=== PATIENT | male | born 1960 | race Caucasian/White ===

== ENCOUNTER 2023-01-13 01:43 | Inpatient (IN) | payer OTHER, MEDICAID ==
[2023-01-13] VITALS (10 sets, daily range): BP systolic 128–179; BP diastolic 79–89; PULSE 18–118; RESP 17–20; TEMP 97.7–98.2; O2SAT 95–99
[~2023-01-13] VITALS: Ht 175.3 cm; Wt 53.2 kg
[2023-01-13] MEDS ORDERED: APIX5TAB PO (03:20)
[2023-01-13] MEDS ORDERED: LISI10TA34 PO (03:20)
[2023-01-13] MEDS ORDERED: BACL10TA PO (03:20)
[2023-01-13] MEDS ORDERED: DIAZ5TAB3 PO (03:20)
[2023-01-13] MEDS ORDERED: ALBU0.084 NEB (03:22)
[2023-01-13] MEDS ORDERED: ACET300T51 PO (03:22)
[2023-01-13] MEDS ORDERED: MORPHINE SULFATE INJ 2 MG/ml SYRG IV PRN (05:45)
[2023-01-13] MEDS ORDERED: IPRATROPIUM BROM 0.5 MG/2.5ML INH SOL NEB PRN (05:45)
[2023-01-13] MEDS ORDERED: DOCUSATE SOD 100 MG CAP PO PRN (05:45)
[2023-01-13] MEDS ORDERED: hydrALAZINE HCL 20 MG/ML VL IV PRN (05:45)
[2023-01-13] MEDS ORDERED: NITROGLYCERIN 0.4 MG SL TAB SL PRN (05:45)
[2023-01-13] MEDS ORDERED: ONDANSETRON HCL 4 MG/2 ML VIAL IV PRN (05:45)
[2023-01-13] MEDS ORDERED: ALBUTEROL SULF 2.5 MG/0.5ML(0.5%) NEB SOLN NEB PRN (05:45)
[2023-01-13] MEDS ORDERED: ACETAMINOPHEN 325 MG TAB PO PRN (05:45)
[2023-01-13] MEDS ORDERED: ASPirin 81 mg TAB PO ONE (06:15)
[2023-01-13] MEDS: SODIUM CHLORIDE 0.9% 1,000 ML IV SCH ×2 (07:39→22:25)
[2023-01-13 08:12] LABS: Basophils # (auto) 0 10 ^3/uL (0-0.2); Basophils % (auto) 0.5 % (0.0-2.0); Eosinophils # (auto) 0.2 10 ^3/uL (0-0.8); Eosinophils % (auto) 2.1 % (0.0-7.0); Hematocrit 43.6 % (41.0-53.0); Hemoglobin 14.4 g/dL (13.5-17.5); Lymphocytes % (auto) 10.6 % (10.0-50.0); Mean Corpuscular Hemoglobin 31.9 pg (28.0-32.0); Mean Corpuscular Volume 96.8 fL (80.0-100.0); Monocytes # (auto) 0.5 10 ^3/uL (0-1.3); Monocytes % (auto) 5.4 % (0.0-12.0); Neutrophils % (auto) 81.4 % (37.0-80.0); Red Cell Distribution Width 14.3 % (11.8-14.3); White Blood Cell 9.8 10^3/uL (4.4-10.8)
[2023-01-13 08:33] LABS: Alanine Aminotransferase 22 U/L (7-40); Albumin 4.3 g/dL (3.2-4.8); Alkaline Phosphatase 99 U/L (46-116); Anion Gap 8 (5-15); Aspartate Aminotransferase 39 U/L (13-40); BUN/Creatinine Ratio 20.5 (10.0-20.0); Blood Urea Nitrogen 17 mg/dL (9-23); Calcium 9.5 mg/dL (8.5-10.1); Carbon Dioxide 21 mmol/L (20-30); Chloride 108 mmol/L (98-107); Glucose 113 mg/dL (74-106); Potassium 4.4 mmol/L (3.5-5.1); Sodium 137 mmol/L (136-145)
[2023-01-13 08:34] LABS: Bilirubin, Total 0.5 mg/dL (0.2-1.0); Total Protein 7.5 g/dL (5.7-8.2)
[2023-01-13] MEDS: HYDROcodone-ACET 5/325MG TAB PO PRN ×3 (09:30→20:52)
[2023-01-13] MEDS ORDERED: APIXABAN 5 MG TAB PO SCH (10:00)
[2023-01-13] MEDS ORDERED: amLODIPine BESYLATE 5 MG TAB PO SCH (10:00)
[2023-01-13] MEDS ORDERED: LABETALOL HCL 5 MG/ML 4ML SYRINGE IV PRN (11:30)
[2023-01-13] MEDS ORDERED: PANTOPRAZOLE 40 MG/10 ML VIAL INJ IV ONE (11:30)
[2023-01-13] MEDS ORDERED: LISINOPRIL 10 MG TAB PO ONE (11:50)
[2023-01-14] VITALS (15 sets, daily range): BP systolic 133–160; BP diastolic 75–93; PULSE 53–103; RESP 17–20; TEMP 97.6–98.9; O2SAT 96–100
[2023-01-14] MEDS: HYDROcodone-ACET 5/325MG TAB PO PRN ×5 (01:21→22:46)
[2023-01-14] MEDS: diazePAM 5 MG TAB PO PRN ×3 (02:08→22:49)
[2023-01-14 06:27] LABS: Basophils # (auto) 0.1 10 ^3/uL (0-0.2); Basophils % (auto) 0.6 % (0.0-2.0); Eosinophils # (auto) 0.3 10 ^3/uL (0-0.8); Eosinophils % (auto) 3.5 % (0.0-7.0); Hematocrit 39.9 % (41.0-53.0); Hemoglobin 13.6 g/dL (13.5-17.5); Lymphocytes # (auto) 1.2 10 ^3/uL (0.4-5.4); Mean Corpuscular Hemoglobin 32.4 pg (28.0-32.0); Mean Corpuscular Volume 95.3 fL (80.0-100.0); Monocytes # (auto) 0.7 10 ^3/uL (0-1.3); Monocytes % (auto) 8.5 % (0.0-12.0); Neutrophils # (auto) 6.4 10 ^3/uL (1.6-8.6); Neutrophils % (auto) 73.4 % (37.0-80.0); Red Blood Cells 4.19 10^6/uL (4.5-5.90); Red Cell Distribution Width 14.1 % (11.8-14.3); White Blood Cell 8.7 10^3/uL (4.4-10.8)
[2023-01-14 06:38] LABS: INR 1.14 (0.9-1.15); Partial Thromboplastin Time 37.8 SEC (24.5-34.5); Prothrombin Time 11.9 sec (9.3-11.8)
[2023-01-14 06:44] LABS: Alanine Aminotransferase 19 U/L (7-40); Albumin 3.9 g/dL (3.2-4.8); Alkaline Phosphatase 86 U/L (46-116); Anion Gap 8 (5-15); Aspartate Aminotransferase 33 U/L (13-40); BUN/Creatinine Ratio 17.1 (10.0-20.0); Blood Urea Nitrogen 13 mg/dL (9-23); Carbon Dioxide 22 mmol/L (20-30); Chloride 108 mmol/L (98-107); Glucose 89 mg/dL (74-106); Potassium 4.3 mmol/L (3.5-5.1); Sodium 138 mmol/L (136-145)
[2023-01-14 06:45] LABS: Bilirubin, Total 0.5 mg/dL (0.2-1.0); Total Protein 6.7 g/dL (5.7-8.2)
[2023-01-14] MEDS: PANTOPRAZOLE 40 MG/10 ML VIAL INJ IV SCH (08:58)
[2023-01-14] MEDS: LISINOPRIL 10 MG TAB PO SCH (09:01)
[2023-01-14] MEDS ORDERED: ACET300T51 PO (15:34)
[2023-01-14] MEDS ORDERED: BACL10TA PO (15:34)
[2023-01-14] MEDS ORDERED: APIX5TAB4 PO (15:34)
[2023-01-14] MEDS ORDERED: DIAZ5TAB3 PO (15:34)
[2023-01-14] MEDS ORDERED: LISI10TA34 PO (15:34)
[2023-01-14 16:45] LABS: Urine Bacteria NONE SEEN /hpf (None Seen); Urine Blood Negative /uL (Negative); Urine Clarity Clear (Clear); Urine Color Yellow (Yellow); Urine Hyaline Cast FEW /lpf (0 - 2); Urine Protein, UAD TRACE (Negative); Urine Specific Gravity 1.019 (1.001-1.035); Urine Urobilinogen Normal (Negative); Urine WBC <1 /hpf (0 - 3)
[2023-01-15 04:52] VITALS: BP 118/67; PULSE 49; RESP 20; TEMP 98.2; O2SAT 96
[2023-01-15 06:02] VITALS: O2SAT 97
[2023-01-15 06:19] LABS: Basophils # (auto) 0.1 10 ^3/uL (0-0.2); Basophils % (auto) 1.1 % (0.0-2.0); Eosinophils # (auto) 0.4 10 ^3/uL (0-0.8); Eosinophils % (auto) 5.3 % (0.0-7.0); Hematocrit 41.2 % (41.0-53.0); Hemoglobin 13.7 g/dL (13.5-17.5); Lymphocytes # (auto) 1.8 10 ^3/uL (0.4-5.4); Mean Corpuscular Hemoglobin 31.5 pg (28.0-32.0); Mean Corpuscular Hgb Conc. 33.3 g/dL (32.0-36.0); Mean Corpuscular Volume 94.6 fL (80.0-100.0); Monocytes # (auto) 0.8 10 ^3/uL (0-1.3); Monocytes % (auto) 9.5 % (0.0-12.0); Neutrophils # (auto) 4.9 10 ^3/uL (1.6-8.6); Neutrophils % (auto) 61.1 % (37.0-80.0); Red Blood Cells 4.35 10^6/uL (4.5-5.90); Red Cell Distribution Width 13.8 % (11.8-14.3)
[2023-01-15] MEDS: HYDROcodone-ACET 5/325MG TAB PO PRN ×2 (06:58→11:38)
[2023-01-15 08:30] VITALS: PULSE 74; PULSE 94; RESP 20; O2SAT 95
[2023-01-15] MEDS: PANTOPRAZOLE 40 MG/10 ML VIAL INJ IV SCH (08:59)
[2023-01-15] MEDS: LISINOPRIL 10 MG TAB PO SCH (09:00)
[2023-01-15 09:06] VITALS: BP 124/66; PULSE 66; RESP 16; TEMP 97.6; O2SAT 95
[2023-01-15] MEDS ORDERED: PANT40TA2 PO (10:26)
[2023-01-15] MEDS: diazePAM 5 MG TAB PO PRN (12:14)
== END 2023-01-15 15:55 | disposition home or self-care (01) | DRG 392 ==
LOC: UNDOADMIN 02:27 → TELE-WESTW 02:27
PROVIDERS: ADMIT Nurse Practitioner Family; ATTEND Internal Medicine
DX: K29.70 Gastritis, unspecified, without bleeding (principal); I24.9 Acute ischemic heart disease, unspecified; I16.0 Hypertensive urgency; I10 Essential (primary) hypertension; I48.91 Unspecified atrial fibrillation; I25.10 Atherosclerotic heart disease of native coronary artery without angina pectoris; J44.9 Chronic obstructive pulmonary disease, unspecified; Z79.899 Other long term (current) drug therapy; Z82.49 Family history of ischemic heart disease and other diseases of the circulatory system; Z86.73 Personal history of transient ischemic attack (TIA), and cerebral infarction without residual deficits; Z88.0 Allergy status to penicillin; Z95.2 Presence of prosthetic heart valve; I25.2 Old myocardial infarction; Z72.0 Tobacco use; Z71.6 Tobacco abuse counseling
CPT/HCPCS: 36415; 71045; 71250; 74176; 80053; 81001; 82270; 83880; 84484; 85025; 85610; 85730; 93005; 93306; 94640; C9113; G0378; J3490

== ENCOUNTER → 2023-02-06 | Outpatient (CLI) | payer OTHER, MEDICAID ==
[~2023-02-06] MED LIST: ACET300T51 PO; ALBU0.084 NEB; APIX5TAB4 PO; BACL10TA PO; DIAZ5TAB3 PO; LISI10TA34 PO; PANT40TA2 PO
[2023-02-06 14:00] LABS: Base Excess -8.2 mmol/L (-2.0-2.0)
== END | disposition home or self-care (01) ==
LOC: RT 13:23
PROVIDERS: ATTEND Internal Medicine
DX: J96.11 Chronic respiratory failure with hypoxia (principal); J44.9 Chronic obstructive pulmonary disease, unspecified
CPT/HCPCS: 36600; 82805

== ENCOUNTER → 2023-02-06 | Outpatient (CLI) | payer OTHER ==
[2023-02-06 14:35] LABS: Basophils # (auto) 0 10 ^3/uL (0-0.2); Basophils % (auto) 0.4 % (0.0-2.0); Eosinophils # (auto) 0.1 10 ^3/uL (0-0.8); Eosinophils % (auto) 1.3 % (0.0-7.0); Hemoglobin 14.8 g/dL (13.5-17.5); Lymphocytes # (auto) 1.3 10 ^3/uL (0.4-5.4); Lymphocytes % (auto) 13.1 % (10.0-50.0); Mean Corpuscular Hemoglobin 32.1 pg (28.0-32.0); Mean Corpuscular Hgb Conc. 33.6 g/dL (32.0-36.0); Mean Corpuscular Volume 95.7 fL (80.0-100.0); Monocytes # (auto) 0.6 10 ^3/uL (0-1.3); Monocytes % (auto) 5.6 % (0.0-12.0); Neutrophils % (auto) 79.6 % (37.0-80.0); Red Cell Distribution Width 14.3 % (11.8-14.3)
[2023-02-06 14:53] LABS: Urine Bacteria NONE SEEN /hpf (None Seen); Urine Blood Negative /uL (Negative); Urine Clarity Clear (Clear); Urine Color Yellow (Yellow); Urine Hyaline Cast FEW /lpf (0 - 2); Urine Mucus FEW (None Seen); Urine Protein, UAD 2+ (Negative); Urine Specific Gravity 1.038 (1.001-1.035); Urine WBC <1 /hpf (0 - 3); Urine pH 5.5 (5.0-8.0)
[2023-02-06 15:20] LABS: Alanine Aminotransferase 14 U/L (7-40); Alkaline Phosphatase 111 U/L (46-116); Anion Gap 6 (5-15); BUN/Creatinine Ratio 20.2 (10.0-20.0); Blood Urea Nitrogen 21 mg/dL (9-23); Calcium 10.2 mg/dL (8.5-10.1); Carbon Dioxide 22 mmol/L (20-30); Chloride 110 mmol/L (98-107); Glucose 99 mg/dL (74-106); LDL Cholesterol 157 mg/dL (< 100); Potassium 5.5 mmol/L (3.5-5.1); Sodium 138 mmol/L (136-145); Triglycerides 125 mg/dL (< 150)
[2023-02-06 15:21] LABS: Aspartate Aminotransferase 23 U/L (13-40); Bilirubin, Total 0.7 mg/dL (0.2-1.0); Cholesterol 209 mg/dL (< 200); HDL Cholesterol 39 mg/dL (40-59); Total Protein 8.1 g/dL (5.7-8.2)
[2023-02-06 15:24] LABS: Folate (Folic Acid) > 24.00 ng/mL (>5.38)
[2023-02-06 15:46] LABS: Uric Acid 6.1 mg/dL (3.7-9.2)
[2023-02-06 15:47] LABS: Magnesium 2.1 mg/dL (1.6-2.6)
== END | disposition home or self-care (01) ==
LOC: LAB 14:19
PROVIDERS: ATTEND Internal Medicine
DX: E61.2 Magnesium deficiency (principal); E79.0 Hyperuricemia without signs of inflammatory arthritis and tophaceous disease; R94.6 Abnormal results of thyroid function studies; R82.998 Other abnormal findings in urine; E55.9 Vitamin D deficiency, unspecified; R82.79 Other abnormal findings on microbiological examination of urine; D51.9 Vitamin B12 deficiency anemia, unspecified; R78.89 Finding of other specified substances, not normally found in blood; R68.89 Other general symptoms and signs; E78.49 Other hyperlipidemia; R73.09 Other abnormal glucose
CPT/HCPCS: 36415; 80053; 80061; 81001; 82306; 82607; 82746; 83036; 83735; 84443; 84550; 85025; 87086

== ENCOUNTER 2024-05-02 16:15 | Emergency (ER) | payer OTHER ==
[~2024-05-02] VITALS: Ht 175.3 cm; Wt 56.8 kg
--- NOTE | 2024-05-02 16:54 | ED.PDOC ---
Musculoskeletal HPI Comments 64-year-old male brought in by EMS presents with a chief complaint of calf tenderness and back pain. Patient states that his back pain is chronic and has been present for x 14 years. Patient reports that his calf tenderness is new and has been present for the past x 2 days. Patient denies any new injuries or trauma prior to onset of symptoms. Patient is able to stand and walk on his leg. Patient has left calf tenderness and diffuse lumbar tenderness. Slight decrease in ROM, but is neuromuscular intact. No bowel or bladder complaints. no weakness. back pain is worsened by turning and bending Chief Complaint: Lower Extremity Time Seen by MD: 16:45 Reviewed Notes: Medications, Allergies Allergies: Coded Allergies: Penicillins (Verified Allergy, Unknown, 01/13/23) Home Meds Active Scripts Pantoprazole Sodium Sesquihydr (Protonix) 40 Mg Tab, 40 MG PO DAILY for 30 Days, #30 TAB Prov:GUERRERO ALEXANDER MD 01/15/23 Reported Medications Lisinopril (Lisinopril) 10 Mg Tab, 10 MG PO DAILY for 30 Days, MG 01/14/23 Diazepam (Diazepam) 5 Mg Tab, 5 MG PO TID, TAB 01/14/23 Baclofen (Baclofen) 10 Mg Tab, 10 MG PO Q8HR, MG 01/14/23 Apixaban Base (Eliquis Starter Pack) 5 Mg Tab, 5 MG PO DAILY, TAB 01/14/23 Acetaminophen W/ Codeine (Acetaminophen/Codeine) 1 Tab Tab, 1 TAB PO Q6HR, #30 TAB 01/14/23 Albuterol Sulfate (Al[facility]erol Sulfate) [facility]083 [facility] Information Source: Patient Mode of Arrival: EMS Location: Left Extremity Location: Leg Timing: Days Prehospital treatment: None Severity: Moderate Able to Move Extremity: Yes Bear Weight: Fully Pain: Moderate Hand Dominance: Right Mechanism: Spontaneous Circumstances: Spontaneous Onset of Symptoms: Spontaneous Symptoms: Pain DVT Risk Factors: NONE Last Tetanus: Unknown Past Medical History PAST MEDICAL HISTORY: COPD, CVA, HTN Past Medical History (Other): Abdominal Aortic Aneurysm- REPAIRED Surgical History (Other): AORTIC ANEURISM GRAFT Family History Family History: Reviewed,noncontributory to illness Social History Smoker: Cigarettes Alcohol: Denies ETOH Use Drugs: Denies Drug Use Lives In: Home Constitutional: denies: chills, diaphoresis, fatigue, fever, malaise, sweats, weakness, others EENTM: denies: blurred vision, double vision, ear bleeding, ear discharge, ear drainage, ear pain, ear ringing, eye pain, eye redness, hearing loss, mouth pain, mouth swelling, nasal discharge, nose bleeding, nose congestion, nose pain, photophobia, tearing, throat pain, throat swelling, voice changes, others Respiratory: denies: cough, hemoptysis, orthopnea, SOB at rest, shortness of breath, SOB with excertion, stridor, wheezing, others Cardiovascular: denies: chest pain, dizzy spells, diaphoresis, Dyspnea on exertion, edema, irregular heart beat, left arm pain, lightheadedness, palpitations, PND, syncope, others Gastrointestinal: denies: abdomen distended, abdominal pain, blood streaked bowels, constipated, diarrhea, dysphagia, difficulty swallowing, hematemesis, melena, nausea, poor appetite, poor fluid intake, rectal bleeding, rectal pain, vomiting, others Genitourinary: denies: burning, dysuria, flank pain, frequency, hematuria, incontinence, penile discharge, penile sore, pain, testicle pain, testicle swelling, urgency, others Neurological: denies: dizziness, fainting, headache, left sided numbness, left sided weakness, numbness, paresthesia, pre-existing deficit, right sided numbness, right sided weakness, seizure, speech problems, tingling, tremors, weakness, others Musculoskeletal: reports: back pain, muscle pain; denies: gout, joint pain, joint swelling, muscle stiffness, neck pain, others Integumetry: denies: bruises, change in color, change in hair/nails, dryness, laceration, lesions, lumps, rash, wounds, others Allergic/Immunocompromised: denies: Difficulty Healing, Frequent Infections, Hives, Itching, others Hematologic/Lymphatic: denies: anemia, blood clots, easy bleeding, easy bruising, swollen glands, others Endocrine: denies: excessive hunger, excessive sweating, excessive thirst, excessive urination, flushing, intolerance to cold, intolerance to heat, unexplained weight gain, unexplained weight loss, others Psychiatric: denies: anxiety, bipolar disorder, depression, hopeless, panic disorder, schizophrenia, sleepless, suicidal, others All Other Systems: Reviewed and Negative Physical Exam General Appearance: No Apparent Distress, Normal HEENT: Normal ENT Inspection, Pharynx Normal, TMs Normal Neck: Full Range of Motion, Non-Tender, Normal, Normal Inspection Respiratory: Chest Non-Tender, Lungs Clear, No Accessory Muscle Use, No Respir atory Distress, Normal Breath Sounds Cardiovascular: No Edema, No JVD, No Murmur, No Gallop, Normal Peripheral Pulses, Regular Rate/Rhythm Breast Exam: Deferred Gastrointestinal: No Organomegaly, Non Tender, No Pulsatile Mass, Normal Bowel Sounds, Soft Genitalia: Deferred Pelvic: Deferred Rectal: Deferred Extremities: Calf tenderness (LEFT CALF), Decreased range of motion, Normal capillary refill, Normal inspection, Non-tender, No pedal edema Musculoskeletal : Extremity Location: Back (MILD DIFFUSED LUMBAR TTP) Apperance: Normal Neurologic: Alert, 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 Was a procedure done?: No Differential Diagnosis EXT Differential Diagnosis: Sprain, DJD, Strain, Neurovascular injury, Arthritis, Other (DVT, SCIATICA) X-Ray, Labs, Meds, VS Vital Signs Date Time Temp Pulse Resp B/P (MAP) Pulse Ox O2 Delivery O2 Flow Rate FiO2 05/02/24 16:29 98.3 102 18 149/92 (111) 96 Time of 1ST Reevaluation: 17:15 Reevaluation 1ST: Unchanged Patient Education/Counseling: Diagnosis, Treatment, Prognosis, Need For Follow Up Family Education/Counseling: No Family Present Departure 1 Departure Time of Disposition: 17:43 Impression: Primary Impression: Sciatica Qualified Codes: M54.32 - Sciatica, left side Disposition: 01 HOME / SELF CARE / HOMELESS Condition: Good e-Prescriptions Lidocaine (LIDODERM 5% TOPICAL PATCH) 1 Patch Ph 1 PATCH TOP DAILY, #30 PATCH 1 Refill Prov: AMPARO PFEIFFER MD 05/02/24 Hydrocodone-Acetaminophen (Hydrocodone Bitartrate/AC 10-325 mg) 1 Tab Tab 1 TAB PO Q8HP PRN for 3 Days, #9 TAB Prov: AMPARO PFEIFFER MD 05/02/24 Cyclobenzaprine Hcl (Cyclobenzaprine Hcl) 10 Mg Tab 10 MG PO Q8HP PRN for 3 Days, #9 TAB Prov: AMPARO PFEIFFER MD 05/02/24 Discharged With: Self Critical Care Note Critical Care Time?: No Stability Stability form required: No I personally scribed for AMPARO PFEIFFER MD ([email or web address]) on 05/02/24 at 16:54. Electronically submitted by Linwood Thomas ([email or web address]). AMPARO PFEIFFER MD May 02, 2024 16:54
[2024-05-02] MEDS ORDERED: HYDROcodone-ACET 5/325MG TAB PO ONE (17:00)
--- NOTE | 2024-05-02 17:09 | DVH ---
INDICATION: pain TECHNIQUE: 4 views of the lumbar spine were obtained. COMPARISON: CT dated 01/13/2023 FINDINGS: No acute subluxation. No acute fracture. Mild to moderate compression fracture of the superior endplate of the L2 vertebral body, chronic. Vascular stent in-situ. IMPRESSION: No acute fracture or subluxation.
--- NOTE | 2024-05-02 17:27 | DVH ---
LEFT lower extremity venous duplex Clinical History: r/o DVT Comparison: None Technique: Duplex Doppler evaluation of the deep venous systems of both lower extremities from the common femora l veins to the popliteal veins including color Doppler and spectral/pulsed waveform analysis was perf ormed. Findings: LEFT SIDE: The common femoral vein demonstrates appropriate compressibility and waveform variability . There is compressibility/patency of the great saphenous vein at the proximal thigh . The femoral vein demonstrates appropriate compressibility and waveform variability . The deep femoral vein demonstrates appropriate compressibility and waveform variability . The popliteal vein demonstrates appropriate compressibility and waveform variability . There is normal compressibility at the tibioperoneal trunk. Impression: 1. No left femoropopliteal venous thrombosis. 2. SUBOPTIMAL STUDY SINCE PATIENT WAS MOVING CONTINUOUSLY. HS:Y
[2024-05-02] MEDS ORDERED: LIDO5DIS21 TOP (17:44)
[2024-05-02] MEDS ORDERED: CYCL-839 PO (17:44)
[2024-05-02] MEDS ORDERED: HYDR-4798 PO (17:44)
[2024-05-02 23:35] VITALS: BP 107/77; PULSE 105; TEMP 98.9
[2024-05-02 23:36] VITALS: RESP 20; O2SAT 96
[2024-05-02] MEDS: fentaNYL CITRATE 100 MCG/2 ML VL IM ONE (23:39)
== END 2024-05-02 23:48 | disposition home or self-care (01) ==
LOC: ER 16:15 → EDBD 16:15 → ER 21:30
DX: M54.32 Sciatica, left side (principal); J44.9 Chronic obstructive pulmonary disease, unspecified; I10 Essential (primary) hypertension; F17.210 Nicotine dependence, cigarettes, uncomplicated; Z79.899 Other long term (current) drug therapy; Z88.0 Allergy status to penicillin; Z98.890 Other specified postprocedural states
CPT/HCPCS: 72100; 93971

== ENCOUNTER 2024-07-08 16:06 | Emergency (ER) | payer OTHER ==
[~2024-07-08] VITALS: Ht 175.3 cm; Wt 44.0 kg
[~2024-07-08 16:06] MED LIST changes: +CYCL-839 PO; +HYDR-4798 PO; +LIDO5DIS21 TOP
[2024-07-08 16:36] VITALS: BP 134/90; PULSE 79; RESP 16; TEMP 98.4; O2SAT 97
--- NOTE | 2024-07-08 16:39 | ED.PDOC ---
Musculoskeletal HPI Comments A 64 YEAR OLD MALE BROUGHT IN BY DAUGHTER PRESENTS TO THE ED WITH CHIEF COMPLAINT OF MED REFILL AND RIGHT TOE NUMBNESS. DAUGHTER REPORTS THAT THE PATIENT IS CURRENTLY ON COUMADIN DUE TO A PREVIOUS CVA AFTER A LEFT AKA WAS PERFORMED. DAUGHTER RELAYS THAT THE PATIENT WAS DISCHARGED WITH NO REFILL ON COUMADIN, NEEDING TO TAKE 2MG A DAY AND 4MG ON THE WEEKENDS. DAUGHTER STATES THAT THE PATIENT HAS BEEN GOING 10 DAYS WITHOUT COUMADIN. DAUGHTER NOTES THAT THE PATIENT JUST STARTED TO COMPLAIN OF NUMBNESS TO HIS RIGHT GREAT TOE A 2 DAYS AGO AND HAS BEEN NOTED TO HAVE CHRONIC BACK PAIN. PATIENT DENIES SADDLE ANESTHESIA, URINARY INCONTINENCE, BOWEL INCONTINENCE, ANY CHEST PAIN, SOB, WEAKNESS, DIZZINESS, OR HEADACHE. NO OTHER SYMPTOMS REPORTED AT THIS TIME OF CARE. Chief Complaint: Lower Extremity Time Seen by MD: 16:35 Reviewed Notes: Nurses Notes, Medications, Allergies Allergies: Coded Allergies: Penicillins (Verified Allergy, Unknown, 01/13/23) Home Meds Active Scripts Gabapentin (Gabapentin) 300 Mg Cap, 1 CAP PO BID, #30 CAP Prov:GRETEL GORE 07/08/24 Warfarin Sodium (Warfarin Sodium) 4 Mg Tab, 1 TAB PO QWEEKLY, #10 TAB Prov:GRETEL GORE 07/08/24 Warfarin Sodium (Warfarin Sodium) 2 Mg Tab, 1 TAB PO DAILY, #30 TAB Prov:GRETEL GORE 07/08/24 Lidocaine (LIDODERM 5% TOPICAL PATCH) 1 Patch Ph, 1 PATCH TOP DAILY, #30 PATCH 1 Refill Prov:AMPARO PFEIFFER MD 05/02/24 Hydrocodone-Acetaminophen (Hydrocodone Bitartrate/AC 10-325 mg) 1 Tab Tab, 1 TAB PO Q8HP PRN for 3 Days, #9 TAB Prov:AMPARO PFEIFFER MD 05/02/24 Cyclobenzaprine Hcl (Cyclobenzaprine Hcl) 10 Mg Tab, 10 MG PO Q8HP PRN for 3 Days, #9 TAB Prov:AMPARO PFEIFFER MD 05/02/24 Pantoprazole Sodium Sesquihydr (Protonix) 40 Mg Tab, 40 MG PO DAILY for 30 Days, #30 TAB Prov:GUERRERO ALEXANDER MD 01/15/23 Reported Medications Lisinopril (Lisinopril) 10 Mg Tab, 10 MG PO DAILY for 30 Days, MG 10/3/23 Diazepam (Diazepam) 5 Mg Tab, 5 MG PO TID, TAB 01/14/23 Baclofen (Baclofen) 10 Mg Tab, 10 MG PO Q8HR, MG 01/14/23 Apixaban Base (Eliquis Starter Pack) 5 Mg Tab, 5 MG PO DAILY, TAB 01/14/23 Acetaminophen W/ Codeine (Acetaminophen/Codeine) 1 Tab Tab, 1 TAB PO Q6HR, #30 TAB 01/14/23 Albuterol Sulfate (Albuterol Sulfate) 0.083 % Neb, NEB 01/13/23 Information Source: Patient, Relative (DAUGHTER) Mode of Arrival: Wheelchair Location: Right Extremity Location: Great Toe Timing: Days Prehospital treatment: None Severity: Moderate Able to Move Extremity: Yes Bear Weight: Limited Pain: None Mechanism: Spontaneous Circumstances: Spontaneous Onset of Symptoms: Spontaneous DVT Risk Factors: Recent surgery Last Tetanus: Unknown Associated signs and symptoms: None Past Medical History PAST MEDICAL HISTORY: COPD, CVA, HTN Past Medical History (Other): CHRONIC LOW BACL PAIN, COMPRESSION FX Surgical History: AKA (LEFT AKA) Family History Family History: Reviewed,noncontributory to illness Social History Smoker: Cigarettes Alcohol: Denies ETOH Use Drugs: Denies Drug Use Lives In: Home Constitutional: denies: chills, diaphoresis, fatigue, fever, malaise, sweats, weakness, others EENTM: denies: blurred vision, double vision, ear bleeding, ear discharge, ear drainage, ear pain, ear ringing, eye pain, eye redness, hearing loss, mouth pain, mouth swelling, nasal discharge, nose bleeding, nose congestion, nose pain, photophobia, tearing, throat pain, throat swelling, voice changes, others Respiratory: denies: cough, hemoptysis, orthopnea, SOB at rest, shortness of breath, SOB with excertion, stridor, wheezing, others Cardiovascular: denies: chest pain, dizzy spells, diaphoresis, Dyspnea on exertion, edema, irregular heart beat, left arm pain, lightheadedness, palpitations, PND, syncope, others Gastrointestinal: denies: abdomen distended, abdominal pain, blood streaked bowels, constipated, diarrhea, dysphagia, difficulty swallowing, hematemesis, melena, nausea, poor appetite, poor fluid intake, rectal bleeding, rectal pain, vomiting, others Genitourinary: denies: burning, dysuria, flank pain, frequency, hematuria, incontinence, penile discharge, penile sore, pain, testicle pain, testicle swelling, urgency, others Neurological: reports: tingling (RIGHT GREAT TOE. ); denies: dizziness, fainting, headache, left sided numbness, left sided weakness, numbness, paresthesia, pre-existing deficit, right sided numbness, right sided weakness, seizure, speech problems, tremors, weakness, others Musculoskeletal: reports: others (RIGHT GREAT TOE NUMBNESS); denies: back pain, gout, joint pain, joint swelling, muscle pain, muscle stiffness, neck pain Integumetry: denies: bruises, change in color, change in hair/nails, dryness, laceration, lesions, lumps, rash, wounds, others Allergic/Immunocompromised: denies: Difficulty Healing, Frequent Infections, Hives, Itching, others Hematologic/Lymphatic: denies: anemia, blood clots, easy bleeding, easy bruising, swollen glands, others Endocrine: denies: excessive hunger, excessive sweating, excessive thirst, excessive urination, flushing, intolerance to cold, intolerance to heat, unexplained weight gain, unexplained weight loss, others Psychiatric: denies: anxiety, bipolar disorder, depression, hopeless, panic disorder, schizophrenia, sleepless, suicidal, others All Other Systems: Reviewed and Negative Physical Exam General Appearance: No Apparent Distress, Normal HEENT: Normal ENT Inspection, PERRL/EOMI Neck: Full Range of Motion, Non-Tender, Normal, Normal Inspection Respiratory: Chest Non-Tender, Lungs Clear, No Accessory Muscle Use, No Re spiratory Distress, Normal Breath Sounds Cardiovascular: No Edema, No JVD, No Murmur, No Gallop, Normal Peripheral Pulses, Regular Rate/Rhythm Breast Exam: Deferred Gastrointestinal: No Organomegaly, Non Tender, No Pulsatile Mass, Normal Bowel Sounds, Soft Genitalia: Deferred Pelvic: Deferred Rectal: Deferred Extremities: No calf tenderness, Normal capillary refill, Normal inspection, Normal range of motion, Non-tender, No pedal edema, Other (NO REDNESS, SWELLING AND DEFORMITY ON RIGHT GREAT, NO DVT SIGNS AND INFECTION SIGNS. NORMAL GAIT. 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 Was a procedure done?: No Differential Diagnosis EXT Differential Diagnosis: Fracture, DJD, Strain, Arthritis Other Differential Diagnosis DDD, LUMBAR RADICULOPATHY X-Ray, Labs, Meds, VS Vital Signs Date Time Temp Pulse Resp B/P (MAP) Pulse Ox O2 Delivery O2 Flow Rate FiO2 07/08/24 16:36 98.4 79 16 134/90 (105) 97 98.4 07/08/24 16:36 79 16 97 Room Air 07/08/24 16:20 98.4 79 16 134/90 (105) 97 98.4 Lab Test 07/08/24 16:40 Range/Units Prothrombin Time 11.7 9.3-11.8 sec Prothrombin Time INR 1.12 0.9-1.15 CLINICAL INDICATION: LOW BACK PAIN WITH RIGHT GREAT TOE NUMBNESS AND TINGLING SEN TECHNIQUE: 2 radiographic views of the lumbar spine were obtained. Comparison: XY LUMBAR SPINE 3 VIEW on DOS: 05/02/24 FINDINGS/IMPRESSION: Mild compression fracture L2 L3 unchanged from May 02, [address] scan of 01/13/2023. The visualized joint space is well maintained. The alignment is anatomical. There is no radiopaque foreign body. HS:Y ATED BY: MELANIE MCINTOSH Jr., DO DICTATED DATE/TIME: 07/08/241709 SIGNED BY: MELANIE MCINTOSH Jr., SIGNED DATE/TIME: 07/08/241709 CC: X-Ray, Labs, Meds, VS Comment EXTERNAL MEDICAL RECORDS REVIEWED: [NONE] INDEPENDENT HISTORIANS: PATIENT'S DAUGHTER SOCIAL DETERMINANTS OF HEALTH: [NONE] LABS ORDERED: PT, PTT, INR REVIEWED AND INTERPRETED RESULTS: NORMAL IMAGING ORDERED: OLD COMPRESSION FX L2-L3 XR L-SPINE TREATMENTS ORDERED: NONE PROCEDURES PERFORMED: NONE CRITICAL CARE TIME: NONE I HAVE DISCUSSED THE PATIENT WITH THE ATTENDING PHYSICIAN DR. KAUFMAN AND HE AGREES WITH THE PATIENT'S PLAN OF CARE AND DISPOSITION. BASED ON HISTORY OF PRESENT ILLNESS, AND PHYSICAL EXAM, PATIENT WILL BE DISCHARGED HOME. DISCUSSED PLAN FOR DISCHARGE HOME WITH RX. COUMADIN AND GABAPENTIN MEDICATION WARNINGS GIVEN. SHARED DECISION MAKING: PATIENT INSTRUCTED TO FOLLOW UP WITH PRIMARY CARE PROVIDER IN 1-2 DAYS FOR RE-EVALUATION OF SYMPTOMS. PATIENT VERBALIZES UNDERSTANDING TO RETURN TO ED FOR NEW OR WORSENING SYMPTOMS OR IF FOLLOW UP WITH PCP CANNOT BE OBTAINED. PATIENT FEELS COMFORTABLE GOING HOME AT THIS TIME. ALL QUESTIONS ADDRESSED AT TIME OF DISCHARGE. Images Reviewed?: Images reviewed and evaluated by me Time of 1ST Reevaluation: 17:05 Reevaluation 1ST: Improved Patient Education/Counseling: Diagnosis, Treatment, Need For Follow Up Family Education/Counseling: Diagnosis, Treatment, Need For Follow Up Medical Screening: No EMC Exist At This Time Departure 1 Departure Time of Disposition: 17:42 Impression: Primary Impression: DDD (degenerative disc disease) Qualified Codes: M51.372 - Other intervertebral disc degeneration, lumbosacral region with discogenic back pain and lower extremity pain Additional Impressions: Lumbar radiculopathy Medication refill Disposition: 01 HOME / SELF CARE / HOMELESS Condition: Stable Additional Instructions: FOLLOW-UP WITH PCP IN 1 TO 2 DAYS. TAKE MEDICATIONS PRESCRIBED. RETURN TO ED FOR ANY NEW OR WORSENING SYMPTOMS. e-Prescriptions Gabapentin (Gabapentin) 300 Mg Cap 1 CAP PO BID, #30 CAP Prov: GRETEL GORE 07/08/24 Warfarin Sodium (Warfarin Sodium) 4 Mg Tab 1 TAB PO QWEEKLY, #10 TAB Prov: GRETEL GORE 07/08/24 Warfarin Sodium (Warfarin Sodium) 2 Mg Tab 1 TAB PO DAILY, #30 TAB Prov: GRETEL GORE 07/08/24 Discharged With: Self, Relative Critical Care Note Critical Care Time?: No Stability Stability form required: No Heart Score Heart Score: Heart Score Response (Comments) Value History N/A 0 EKG N/A 0 Age N/A 0 Risk Factors N/A 0 Troponin N/A 0 Total 0 I personally scribed for GRETEL GORE ([email or web address]) on 07/08/24 at 16:39. Electronically submitted by Cliff Ortiz ([email or web address]). I personally scribed for GRETEL GORE ([email or web address]) on 07/08/24 at 16:43. Electronically submitted by Cliff Ortiz ([email or web address]). I personally scribed for GRETEL GORE ([email or web address]) on 07/08/24 at 17:14. Electronically submitted by Cliff Ortiz ([email or web address]). I personally scribed for GRETEL GORE ([email or web address]) on 07/08/24 at 17:43. Electronically submitted by Cliff Ortiz ([email or web address]). I personally scribed for GRETEL GORE ([email or web address]) on 07/09/24 at 08:19. Electronically submitted by Kilo Boss ([email or web address]). GRETEL GORE Jul 08, 2024 16:39
--- NOTE | 2024-07-08 17:12 | DVH ---
CLINICAL INDICATION: LOW BACK PAIN WITH RIGHT GREAT TOE NUMBNESS AND TINGLING SEN TECHNIQUE: 2 radiographic views of the lumbar spine were obtained. Comparison: XY LUMBAR SPINE 3 VIEW on DOS: 05/02/24 FINDINGS/IMPRESSION: Mild compression fracture L2 L3 unchanged from May 02, [address] scan of 01/13/2023. The visualized joint space is well maintained. The alignment is anatomical. There is no radiopaque foreign body. HS:Y
[2024-07-08 17:28] LABS: INR 1.12 (0.9-1.15); Prothrombin Time 11.7 sec (9.3-11.8)
[2024-07-08] MEDS ORDERED: WARF4TAB69 PO (17:47)
[2024-07-08] MEDS ORDERED: WARF-112 PO (17:47)
[2024-07-08] MEDS ORDERED: GABA-1250 PO (17:51)
== END 2024-07-08 17:52 | disposition home or self-care (01) ==
LOC: ER 16:06
DX: M51.369 Other intervertebral disc degeneration, lumbar region without mention of lumbar back pain or lower extremity pain (principal); M54.16 Radiculopathy, lumbar region; I10 Essential (primary) hypertension; J44.9 Chronic obstructive pulmonary disease, unspecified; G89.29 Other chronic pain; F17.210 Nicotine dependence, cigarettes, uncomplicated; Z76.0 Encounter for issue of repeat prescription; Z86.73 Personal history of transient ischemic attack (TIA), and cerebral infarction without residual deficits; Z79.01 Long term (current) use of anticoagulants; Z79.899 Other long term (current) drug therapy; Z88.0 Allergy status to penicillin; Z89.612 Acquired absence of left leg above knee
CPT/HCPCS: 36415; 72100; 85610

== ENCOUNTER 2024-11-06 01:06 | Inpatient (IN) | payer OTHER, MEDICAID ==
[~2024-11-06] VITALS: Ht 170.2 cm; Wt 52.5 kg
[2024-11-06] VITALS (15 sets, daily range): BP systolic 122–161; BP diastolic 69–103; PULSE 70–96; RESP 16–24; TEMP 97.6–98; O2SAT 93–100
[~2024-11-06 01:06] MED LIST changes: +GABA-1250 PO; +WARF-112 PO; +WARF4TAB69 PO
--- NOTE | 2024-11-06 01:38 | ED.PDOC ---
History of Present Illness HPI Comments 64 year old male with a Hx of Blood thinners, High Lipids, COPD, CVA, HTN, and a CABG was BIBA for the c/c of ALOC. Per EMS pt is a transfer from [place] where he was Dx with a UTI, and Metabolic Encephalopathy. Pt is noted to have had a Head CT done at [facility], results are noted to have been Negative. EMS notes on administering O2 and Breathing Tx on route. No other associated symptoms, modifiers, recent injuries or sick contacts present at this time. Chief Complaint: ALOC Time Seen by MD: :29 Reviewed Notes: Nurses Notes, Wood Grinder Operator Notes, Medications, Allergies Allergies: Coded Allergies: Penicillins (Verified Allergy, Unknown, 01/13/23) Home Meds Active Scripts Gabapentin (Gabapentin) 300 Mg Cap, 1 CAP PO BID, #30 CAP Prov:GREETL GORE 07/08/24 Warfarin Sodium (Warfarin Sodium) 4 Mg Tab, 1 TAB PO QWEEKLY, #10 TAB Prov:GRETEL GORE 07/08/24 Warfarin Sodium (Warfarin Sodium) 2 Mg Tab, 1 TAB PO DAILY, #30 TAB Prov:GRETEL GORE 07/08/24 Lidocaine (LIDODERM 5% TOPICAL PATCH) 1 Patch Ph, 1 PATCH TOP DAILY, #30 PATCH 1 Refill Prov:AMPARO PFEIFFER MD 05/02/24 Hydrocodone-Acetaminophen (Hydrocodone Bitartrate/AC 10-325 mg) 1 Tab Tab, 1 TAB PO Q8HP PRN for 3 Days, #9 TAB Prov:AMPARO PFEIFFER MD 05/02/24 Cyclobenzaprine Hcl (Cyclobenzaprine Hcl) 10 Mg Tab, 10 MG PO Q8HP PRN for 3 Days, #9 TAB Prov:AMPARO PFEIFFER MD 05/02/24 Pantoprazole Sodium Sesquihydr (Protonix) 40 Mg Tab, 40 MG PO DAILY for 30 Days, #30 TAB Prov:GUERRERO ALEXANDER MD 01/15/23 Reported Medications Lisinopril (Lisinopril) 10 Mg Tab, 10 MG PO DAILY for 30 Days, MG 01/14/23 Diazepam (Diazepam) 5 Mg Tab, 5 MG PO TID, TAB 01/14/23 Baclofen (Baclofen) 10 Mg Tab, 10 MG PO Q8HR, MG 01/14/23 Apixaban Base (Eliquis Starter Pack) 5 Mg Tab, 5 MG PO DAILY, TAB 01/14/23 Acetaminophen W/ Codeine (Acetaminophen/Codeine) 1 Tab Tab, 1 TAB PO Q6HR, #30 TAB 01/14/23 Albuterol Sulfate (Albuterol Sulfate) 0.083 % Neb, NEB 01/13/23 Information Source: Patient, Emergency Med Personnel Mode of Arrival: EMS Severity: Moderate Timing: Hours Duration: Since onset, Hours Prehospital treatment: 12 Lead EKG, Breathing Tx, Oxygen Past Medical History PAST MEDICAL HISTORY: COPD, CVA, High Lipids, HTN Surgical History: AKA, CABG Family History Family History: Reviewed,noncontributory to illness Social History Smoker: Cigarettes Alcohol: Denies ETOH Use Drugs: Denies Drug Use Lives In: Home Constitutional: denies: chills, diaphoresis, fatigue, fever, malaise, sweats, weakness, others EENTM: denies: blurred vision, double vision, ear bleeding, ear discharge, ear drainage, ear pain, ear ringing, eye pain, eye redness, hearing loss, mouth pain, mouth swelling, nasal discharge, nose bleeding, nose congestion, nose pain, photophobia, tearing, throat pain, throat swelling, voice changes, others Respiratory: denies: cough, hemoptysis, orthopnea, SOB at rest, shortness of breath, SOB with excertion, stridor, wheezing, others Cardiovascular: denies: chest pain, dizzy spells, diaphoresis, Dyspnea on exertion, edema, irregular heart beat, left arm pain, lightheadedness, palpitations, PND, syncope, others Gastrointestinal: denies: abdomen distended, abdominal pain, blood streaked bowels, constipated, diarrhea, dysphagia, difficulty swallowing, hematemesis, melena, nausea, poor appetite, poor fluid intake, rectal bleeding, rectal pain, vomiting, others Genitourinary: denies: burning, dysuria, flank pain, frequency, hematuria, incontinence, penile discharge, penile sore, pain, testicle pain, testicle swelling, urgency, others Neurological: denies: dizziness, fainting, headache, left sided numbness, left sided weakness, numbness, paresthesia, pre-existing deficit, right sided numbness, right sided weakness, seizure, speech problems, tingling, tremors, weakness, others Musculoskeletal: denies: back pain, gout, joint pain, joint swelling, muscle pain, muscle stiffness, neck pain, others Integumetry: denies: bruises, change in color, change in hair/nails, dryness, laceration, lesions, lumps, rash, wounds, others Allergic/Immunocompromised: denies: Difficulty Healing, Frequent Infections, Hives, Itching, others Hematologic/Lymphatic: denies: anemia, blood clots, easy bleeding, easy bruising, swollen glands, others Endocrine: denies: excessive hunger, excessive sweating, excessive thirst, excessive urination, flushing, intolerance to cold, intolerance to heat, unexplained weight gain, unexplained weight loss, others Psychiatric: denies: anxiety, bipolar disorder, depression, hopeless, panic disorder, schizophrenia, sleepless, suicidal, others Unable to Obtain due to: Altered Mental Status All Other Systems: Reviewed and Negative Physical Exam General Appearance: Moderate Distress, Normal, Thin, Other (chronic ill appearing ) HEENT: Normal ENT Inspection, Pharynx Normal, TMs Normal Neck: Full Range of Motion, Non-Tender, Normal, Normal Inspection Respiratory: Chest Non-Tender, Lungs Clear, No Accessory Muscle Use, No Respiratory Distress, Normal Breath Sounds Cardiovascular: No Edema, No JVD, No Murmur, No Gallop, Normal Peripheral Pulses, Regular Rate/Rhythm Breast Exam: Deferred Gastrointestinal: No Organomegaly, Non Tender, No Pulsatile Mass, Normal Bowel Sounds, Soft Genitalia: Deferred Pelvic: Deferred Rectal: Deferred Extremities: No calf tenderness, Normal capillary refill, Normal inspection, Normal range of motion, Non-tender, No pedal edema Musculoskeletal : Apperance: Normal Neurologic: Disoriented, No Motor Deficits, Normal Affect, Normal Mood Cerebellar Function: Normal Reflexes: Normal Skin: Dry, Normal Color, Warm Lymphatic: No Adenopathy Was a procedure done? Was a procedure done?: No Differential Dx Considerations may include: Differential diagnosis includes but is not limited to: encephalitis, encephalopathy, toxic overdose, traumatic injury, infectious process, hypovolemia and others X-Ray, Labs, Meds, VS Vital Signs Date Time Temp Pulse Resp B/P (MAP) Pulse Ox O2 Delivery O2 Flow Rate FiO2 11/06/24 02:12 93 26 146/69 (94) 95 11/06/24 02:00 Room Air* 0 21 11/06/24 01:48 Nasal Cannula* 2 28 11/06/24 01:10 97.7 85 24 140/89 (106) 98 97.7 11/06/24 01:06 95 Lab Test 11/06/24 02:45 11/06/24 01:41 11/06/24 01:40 Range/Units Troponin I High Sensitivity Pending 4 </=54 ng/L White Blood Count 7.3 4.4-10.8 10^3/uL Red Blood Count 4.43 L 4.5-5.90 10^6/uL Hemoglobin 14.0 13.5-17.5 g/dL Hematocrit 42.1 41.0-53.0 % Mean Corpuscular Volume 94.9 80.0-100.0 fL Mean Corpuscular Hemoglobin 31.7 28.0-32.0 pg Mean Corpuscular Hemoglobin Concent 33.4 32.0-36.0 g/dL Red Cell Distribution Width 14.9 H 11.8-14.3 % Platelet Count 201 140-450 10^3/uL Mean Platelet Volume 8.4 6.9-10.8 fL Neutrophils (%) (Auto) 67.5 37.0-80.0 % Lymphocytes (%) (Auto) 18.8 10.0-50.0 % Monocytes (%) (Auto) 11.6 0.0-12.0 % Eosinophils (%) (Auto) 1.8 0.0-7.0 % Basophils (%) (Auto) 0.3 0.0-2.0 % Neutrophils # (Auto) 4.9 1.6-8.6 10 ^3/uL Lymphocytes # (Auto) 1.4 0.4-5.4 10 ^3/uL Monocytes # (Auto) 0.8 0-1.3 10 ^3/uL Eosinophils # (Auto) 0.1 0-0.8 10 ^3/uL Basophils # (Auto) 0 0-0.2 10 ^3/uL Nucleated Red Blood Cells 0.1 % Prothrombin Time 16.5 H 9.3-11.8 sec Prothrombin Time INR 1.63 H 0.9-1.15 Activated Partial Thromboplast Time 34.2 24.5-34.5 SEC Sodium Level 139 136-145 mmol/L Potassium Level 4.2 3.5-5.1 mmol/L Chloride Level 107 98-107 mmol/L Carbon Dioxide Level 19 L 20-31 mmol/L Anion Gap 13 5-15 Blood Urea Nitrogen 15 9-23 mg/dL Creatinine 0.70 0.700-1.30 mg/dL Glomerular Filtration Rate Calc 102 >90 mL/min BUN/Creatinine Ratio 21.4 H 10.0-20.0 Serum Glucose 90 74-106 mg/dL Calcium Level 9.2 8.7-10.4 mg/dL Magnesium Level 2.2 1.6-2.6 mg/dL Total Bilirubin 0.5 0.2-1.0 mg/dL Aspartate Amino Transferase (AST) 36 13-40 U/L Alanine Aminotransferase (ALT) 18 7-40 U/L Alkaline Phosphatase 110 46-116 U/L Ammonia < 10 L 11-32 umol/L B-Type Natriuretic Peptide 26.52 0-100 pg/mL Total Protein 7.1 5.7-8.2 g/dL Albumin 4.4 3.2-4.8 g/dL Plasma/Serum Blood Alcohol < 3.0 <10 mg/dL Blood Gas Specimen Type Venous Blood Gas Sample Site Vbg - n/a Blood Gas Patient Temperature 37.0 Arterial Blood Date Drawn [id number] Josh Test N/a Venous Blood pH 7.382 7.320-7.430 Venous Blood pCO2 at Patient Temp 30.1 L 38.0-54.0 mmHg Venous Blood pO2 at Patient Temp 48.8 H 23.0-48.0 mmHg Venous Blood HCO3 17.5 L 22.0-29.0 mmol/L Venous Blood Base Excess -6.2 L -2.0-3.0 mmol/L Blood Gas Modality Nasal cannula FiO2 % 28.0 Blood Gas Critical Value Read Back yes Blood Gas Notified Whom Brandee keating md Blood Gas Notified Time [id number] Blood Gas Notified By Gelatin Maker Utility lorna rubalcava Current Medications Medications (Trade) Dose Ordered Sig/Joe Route Start Time Stop Time Status Last Admin Sodium Chloride 1,000 ml @ 1,000 mls/hr Q1H ONCE IVB 11/06/24 01:30 11/06/24 02:29 DC 11/06/24 02:11 Albuterol (Ventolin Medneb) 5 mg ONCE ONCE NEB 11/06/24 01:30 11/06/24 01:31 DC 11/06/24 01:48 Ipratropium [place] (Atrovent Medneb) 0.5 mg ONCE ONCE NEB 11/06/24 01:30 11/06/24 01:31 DC 11/06/24 01:48 PATIENT: JOSH ARANDA ACCT: [id number] UNIT: [id number] : 1960 LOC: ER ROOM / BED: / AGE / SEX: 64 / M ADM STATUS: REG ER SERVICE [id number] ORDERING PHYSICIAN: JANNIE SNOW MD PROCEDURE(s): HWOCT - HEAD WITHOUT CONTRAST REASON: ALOC ORDER NUMBER(s): [id number], ACCESSION NUMBER(s): [id number] EXAM: CT HEAD WITHOUT CONTRAST INDICATION: ALOC TECHNIQUE: CT of the head without intravenous contrast. Radiation Dose : 1. Head: CT Dose: CTDI volume is 53.9 mGy. Dose-length product is 1062.36 mGy*cm The dose indicators for CT are the volume Computed Tomography (CT) Dose Index (CTDIvol) and the Dose Length Product (DLP), and are measured in units of mGy and mGy-cm, respectively. These indicators are not patient dose, but values generated from the CT scanner acquisition factors. The report includes radiation exposure data for exposures received during this examination. COMPARISON: None FINDINGS: Postsurgical changes consistent with prior left frontotemporal craniotomy. Focally diminished attenuation within the left external capsule consistent with sequelae of remote insult. There is no evidence of acute intracranial hemorrhage, extra-axial collection, mass effect, midline shift, herniation or hydrocephalus. The ventricles, sulci and cisterns are age appropriate. The san-white differentiation is intact. Patchy periventricular and subcortical white matter hypoattenuation is nonspe cific but may be related to small vessel ischemic disease. The visualized paranasal sinuses and mastoid air cells are clear. The surrounding soft tissues and osseous structures are unremarkable. IMPRESSION: 1. No acute intracranial abnormality. 2. Sequelae of remote insult within the left external capsule. 3. Postsurgical change status post left frontotemporal craniotomy. PATIENT: JOSH ARANDA ACCT: [id number] UNIT: [id number] : 1960 LOC: ER ROOM / BED: / AGE / SEX: 64 / M ADM STATUS: REG ER SERVICE 6 ORDERING PHYSICIAN: JANNIE SNOW MD PROCEDURE(s): CXRP - CHEST PORTABLE REASON: SOB ORDER NUMBER(s): [id number], ACCESSION NUMBER(s): [id number] CHEST RADIOGRAPH Indication: SOB Technique: Single frontal view of the chest was obtained COMPARISON: XY CHEST PORTABLE on DOS: 01/13/23 FINDINGS: Lines and Tubes: None Lungs: Chronic appearing bilateral interstitial pulmonary markings without evidence of focal consolidation. Pleura: No effusion. No pneumothorax. Cardiomediastinal contours: Unremarkable status post median sternotomy. Bones: Unremarkable IMPRESSION: 1. No acute disease. Chronic appearing bilateral interstitial pulmonary markings. Time of 1ST Reevaluation: 02:00 Reevaluation 1ST: Unchanged Patient Education/Counseling: Diagnosis, Treatment, Need For Follow Up Family Education/Counseling: No Family Present SEPSIS Sepsis Screen Physician Orders Electrocardigram (11/06/24 01:06) Urinalysis (11/06/24 01:17) Chest Portable (11/06/24 01:17) Head Without Contrast (11/06/24 01:17) Drug Screen (11/06/24 01:17) Interior Assemblies Developer Prover (11/06/24 01:17) Troponin-I Hs (11/06/24 02:17) Troponin-I Hs (11/06/24 04:17) Venous Blood Gas (11/06/24 01:17) Vital Signs Date Time Temp Pulse Resp B/P (MAP) Pulse Ox O2 Delivery O2 Flow Rate FiO2 11/06/24 02:12 93 26 146/69 (94) 95 11/06/24 02:00 Room Air* 0 21 11/06/24 01:48 Nasal Cannula* 2 28 11/06/24 01:10 97.7 85 24 140/89 (106) 98 97.7 11/06/24 01:06 95 Laboratory Tests Test 11/06/24 01:41 White Blood Count 7.3 10^3/uL (4.4-10.8) Medications Medications Dose Ordered Sig/Joe Route Start Time Stop Time Status Last Admin Dose Admin Albuterol 5 mg ONCE ONCE NEB 11/06/24 01:30 11/06/24 01:31 DC 11/06/24 01:48 Ipratropium [place] 0.5 mg ONCE ONCE NEB 11/06/24 01:30 11/06/24 01:31 DC 11/06/24 01:48 Sodium Chloride 1,000 ml @ 1,000 mls/hr Q1H ONCE IVB 11/06/24 01:30 11/06/24 02:29 DC 11/06/24 02:11 Departure 1 Departure Time of Disposition: 03:13 Impression: Primary Impression: Acute metabolic encephalopathy Additional Impressions: COPD (chronic obstructive pulmonary disease) UTI (urinary tract infection) Dehydration Disposition: ADMITTED INPATIENT Admit to: Med Surg Condition: Guarded Discharged With: Self Comments Altered Mental Status in 64-year-old Male with History of Stroke Chief Complaint: Altered mental status History of Present Illness: Patient is a 64-year-old male with significant past medical history of prior stroke, prior craniotomy, hypertension, and coronary artery disease status post coronary artery bypass graft. He was transferred from [facility] via ambulance for evaluation of altered mental status. Prior to transfer, the patient received IV Rocephin, suggesting concern for possible infection. Limited information is available regarding the onset, duration, and progression of his mental status changes prior to arrival at our facility. Review of Systems: Limited due to patient's altered mental status. Neurological: Confusion noted. Constitutional: No documented fever or chills. Other systems: Unable to assess due to patient's condition. Medications: Medications prior to admission not documented. Medications administered at [facility]: - IV Rocephin (ceftriaxone) Medications administered in our ED: - IV fluids Allergies: No known allergies documented Past Medical History: Prior stroke Hypertension Coronary artery disease Status post coronary artery bypass graft Past Surgical History: Prior craniotomy in left frontal temporal area Coronary artery bypass graft (CABG), date unknown Physical Exam: General: Alert with engaging affect Neurological: Confused Paulina Coma Scale: Alert, oriented to self only Lab Results: CBC: Unremarkable Chemistry panel: - CO2: Low at 19 mEq/L - Other chemistries: Unremarkable Troponin: Normal at 4 ng/L Ammonia level: Less than 10 ?mol/L (normal) BNP: Normal at 26 pg/mL Alcohol level: Zero Urinalysis (from [facility]): - Trace white blood cells, suggestive of possible UTI Imaging and Other Relevant Results: Head CT: - Postsurgical changes in the left frontal temporal area consistent with prior craniotomy - Evidence of prior stroke in the left external capsule - No acute intracranial abnormalities Chest X-ray: - No acute pathology - Chronic bilateral interstitial markings noted Medical Decision Making: Summary Statement: 64-year-old male with history of stroke and craniotomy presenting with altered mental status, found to have low CO2 level and possible UTI. Problem List: 1. Acute metabolic encephalopathy 2. Hypobicarbonatemia (CO2 of 19) 3. Possible urinary tract infection 4. Dehydration 5. History of stroke with prior craniotomy 6. Coronary artery disease status post CABG 7. Hypertension Differential Diagnosis: Metabolic encephalopathy secondary to electrolyte disturbance, urinary tract infection with associated delirium, dehydration, medication effect, post-stroke sequelae, recurrent stroke (though not evident on imaging), seizure (non-convulsive), hypoxic encephalopathy, toxic-metabolic encephalopathy, medication side effects. ED Course: Patient received IV fluids in the emergency department to address possible dehydration. Prior to arrival, he received IV Rocephin at the transferring facility for possible UTI. Laboratory studies were obtained showing low CO2 level of 19, but otherwise unremarkable labs. Head CT showed no acute changes. After evaluation, decision was made to admit the patient for further management of acute metabolic encephalopathy. Assessment and Plan: 1. Acute Metabolic Encephalopathy: - Likely multifactorial etiology including low bicarbonate, possible UTI, and dehydration - Continue IV hydration - Monitor mental status - Correct electrolyte abnormalities - Neurology consultation to evaluate for possible contribution from prior stroke 2. Hypobicarbonatemia (CO2 of 19): - Continue IV fluid resuscitation - Monitor electrolytes - Evaluate for underlying cause of metabolic acidosis 3. Possible Urinary Tract Infection: - Continue antibiotics (Rocephin initiated at transferring facility) - Obtain urine culture if not already done - Adjust antibiotics based on culture results when available 4. Dehydration: - Continue IV fluid resuscitation - Monitor input and output - Assess for clinical improvement 5. History of Stroke with Prior Craniotomy: - Neurology consultation to evaluate for possible contribution to current presentation - Continue home medications for secondary stroke prevention 6. Coronary Artery Disease status post CABG: - Continue home cardiac medications - Monitor for any cardiac symptoms 7. Hypertension: - Continue home antihypertensive medications - Monitor blood pressure Disposition: Admit to Medicine service for further evaluation and management of acute metabolic encephalopathy, possible UTI, and dehydration. Additional Notes: Patient transferred from [facility] for evaluation of altered mental status Billing Information: ICD-10: F05 - Delirium due to known physiological condition ICD-10: E87.8 - Other disorders of electrolyte and fluid balance ICD-10: N39.0 - Urinary tract infection, site not specified ICD-10: I69.30 - Unspecified sequelae of cerebral infarction Critical Care Note Critical Care Time?: No Critical care comment: Total critical care time: Approximately 36 minutes Due to a high probability of clinically significant, life threatening deterioration, the patient required [facility] and I personally spent this critical care time directly and personally managing the patient. This critical care time included obtaining a history; examining the patient; pulse oximetry; ordering and review of studies; arranging urgent treatment with development of a management plan; evaluation of patient's response to treatment; frequent reassessment; and, discussions with other providers. This critical care time was performed to assess and manage the high probability of imminent, life-threatening deterioration that could result in multi-organ failure. It was exclusive of separately billable procedures and treating other patients. Stability Stability form required: No Heart Score Heart Score: Heart Score Response (Comments) Value History N/A 0 EKG N/A 0 Age N/A 0 Risk Factors N/A 0 Troponin N/A 0 Total 0 I personally scribed for JANNIE NSOW MD ([email or web address]) on 11/06/24 at 01:38. El ectronically submitted by Ron Addison ([email or web address]). I personally scribed for JANNIE SNOW MD ([email or web address]) on 11/06/24 at 02:40. Electronically submitted by Ron Addison ([email or web address]). JANNIE SNOW MD Nov 06, 2024 01:38
[2024-11-06] MEDS: IPRATROPIUM BROM 0.5 MG/2.5ML INH SOL NEB ONE (01:48)
[2024-11-06] MEDS: ALBUTEROL SULF 2.5 MG/0.5ML(0.5%) NEB SOLN NEB ONE (01:48)
[2024-11-06 01:51] LABS: Hematocrit 42.1 % (41.0-53.0); Hemoglobin 14.0 g/dL (13.5-17.5); Mean Corpuscular Hemoglobin 31.7 pg (28.0-32.0); Mean Corpuscular Volume 94.9 fL (80.0-100.0); Nucleated Red Blood Cells % 0.1 %
[2024-11-06] MEDS: SODIUM CHLORIDE 0.9% 1,000 ML IVB ONE (02:00)
[2024-11-06 02:08] LABS: INR 1.63 (0.9-1.15); Partial Thromboplastin Time 34.2 SEC (24.5-34.5); Prothrombin Time 16.5 sec (9.3-11.8)
[2024-11-06 02:09] LABS: Alanine Aminotransferase 18 U/L (7-40); Albumin 4.4 g/dL (3.2-4.8); Alkaline Phosphatase 110 U/L (46-116); Anion Gap 13 (5-15); BUN/Creatinine Ratio 21.4 (10.0-20.0); Bilirubin, Total 0.5 mg/dL (0.2-1.0); Blood Urea Nitrogen 15 mg/dL (9-23); Calcium 9.2 mg/dL (8.7-10.4); Glucose 90 mg/dL (74-106); Magnesium 2.2 mg/dL (1.6-2.6); Potassium 4.2 mmol/L (3.5-5.1); Sodium 139 mmol/L (136-145); Total Protein 7.1 g/dL (5.7-8.2)
[2024-11-06 02:11] LABS: Carbon Dioxide 19 mmol/L (20-31); Chloride 107 mmol/L (98-107)
--- NOTE | 2024-11-06 02:31 | DVH ---
CHEST RADIOGRAPH Indication: SOB Technique: Single frontal view of the chest was obtained COMPARISON: XY CHEST PORTABLE on DOS: 01/13/23 FINDINGS: Lines and Tubes: None Lungs: Chronic appearing bilateral interstitial pulmonary markings without evidence of focal consolid ation. Pleura: No effusion. No pneumothorax. Cardiomediastinal contours: Unremarkable status post median sternotomy. Bones: Unremarkable IMPRESSION: 1. No acute disease. Chronic appearing bilateral interstitial pulmonary markings.
--- NOTE | 2024-11-06 02:31 | DVH ---
EXAM: CT HEAD WITHOUT CONTRAST INDICATION: ALOC TECHNIQUE: CT of the head without intravenous contrast. Radiation Dose : 1. Head: CT Dose: CTDI volume is 53.9 mGy. Dose-length product is 1062.36 mGy*cm The dose indicators for CT are the volume Computed Tomography (CT) Dose Index (CTDIvol) and the Dose Length Product (DLP), and are measured in units of mGy and mGy-cm, respectively. These indicators are not patient dose, but values generated from the CT scanner acquisition factors. The report includes radiation exposure data for exposures received during this examination. COMPARISON: None FINDINGS: Postsurgical changes consistent with prior left frontotemporal craniotomy. Focally diminished attenuation within the left external capsule consistent with sequelae of remote in sult. There is no evidence of acute intracranial hemorrhage, extra-axial collection, mass effect, midline s hift, herniation or hydrocephalus. The ventricles, sulci and cisterns are age appropriate. The san-white differentiation is intact. Patchy periventricular and subcortical white matter hypoattenuation is nonspecific but may be related to small vessel ischemic disease. The visualized paranasal sinuses and mastoid air cells are clear. The surrounding soft tissues and osseous structures are unremarkable. IMPRESSION: 1. No acute intracranial abnormality. 2. Sequelae of remote insult within the left external capsule. 3. Postsurgical change status post left frontotemporal craniotomy. Radiation optimization: All CT scans at this facility use at least one of these dose optimization sukumar hniques: automated exposure control mA and/or kV adjustment per patient size (includes targeted exam s where dose is matched to clinical indication) or iterative reconstruction.
[2024-11-06 04:03] LABS: Urine Protein, UAD Negative (Negative)
[2024-11-06 04:16] LABS: Amphetamine Screen, Urine Neg (NEGATIVE); Barbiturate Scree,Urine Neg (NEGATIVE); Benzodiazephine Screen, Urine Neg (NEGATIVE); Cannabinoid Screen, Urine Neg (NEGATIVE); Cocaine Screen, Urine Neg (NEGATIVE); Opiate Scree,Urine Pos (NEGATIVE); Phencyclidine Screen, Urine Neg (NEGATIVE)
[2024-11-06] MEDS ORDERED: ONDANSETRON HCL 4 MG/2 ML VIAL IV PRN (04:45)
[2024-11-06] MEDS ORDERED: NITROGLYCERIN 0.4 MG SL TAB SL PRN (04:45)
[2024-11-06] MEDS ORDERED: MORPHINE SULFATE INJ 2 MG/ml SYRG IV PRN (04:45)
--- NOTE | 2024-11-06 05:07 | DVHHP2 ---
History of Present Illness Reason for Visit: COPD with acute exacerbation History of Present Illness The patient is a 64-year-old male with past medical history of COPD, CVA, hyperlipidemia, and hypertension who presented to [facility] ED for evaluation of altered level of consciousness and shortness of breaths. As reported by EMS, patient was transferred from [facility] where he was diagnosed with UTI and metabolic encephalopathy. Patient was seen and evaluated in the ED, laboratory data shows WBC 7.3, platelets 201, sodium 139, potassium 4.2, BUN 15, creatinine 0.70, GFR 102, glucose 90, calcium 9.2, troponin 6, BNP 26.52, blood pressure 146/65, heart rate 92, temperature 97.8 F, O2 saturation 95% on oxygen. Urinalysis positive for urinary tract infection. Head CT showed no acute intracranial abnormality. Patient was started on IV antibiotic regimen levofloxacin, given breathing treatment, please see medication orders section in the computer. On my assessment, patient denied chest pain, no headache, no dizziness, currently on oxygen, no diaphoresis, no nausea, no vomiting, no fever, no chills. Patient was admitted for further evaluation and medical management. Past Medical History COPD, CVA, High Lipids, HTN Past Surgical History AKA, CABG, Left frontotemporal craniotomy Family History Reviewed, noncontributory to the management of this case. Past Social History The patient lives at home, smokes cigarettes, denies alcohol or illicit drugs abuse. Review of Systems Constitutional: Yes: Weakness; No: Fever, Chills, Sweats, Malaise, Other Eyes: No: Pain, Vision change, Conjunctivae inflammation, Eyelid inflammation, Other, Redness ENT: No: Ear pain, Ear discharge, Nose pain, Nose discharge, Nose congestion, Mouth pain, Mouth swelling, Throat pain, Throat swelling, Other Respiratory: Shortness of breath, Other (SOB at rest); No: Cough, Dry, SOB with excertion, Wheezing, Hemoptysis, Pleuritic Pain, Sputum, Wheezing Cardiovascular: No: Chest Pain, Palpitations, Orthopnea, Paroxysmal Noc. Dyspnea, Edema, Lt Headedness, Other Gastrointestinal: No: Nausea, Vomiting, Abdominal Pain, Diarrhea, Constipation, Melena, Hematochezia, Other Genitourinary: No Dysuria, No Frequency, No Incontinence, No Hematuria, No Retention, No Other Musculoskeletal: other (Left AKA); No: neck pain, shoulder pain, arm pain, back pain, hand pain, leg pain, foot pain Skin: No: Rash, Lesions, Jaundice, Bruising, Other Neurological: Other (Altered level of consciousness); No: Weakness, Numbness, Incoordination, Change in speech, Confusion, Seizures Allergies: Coded Allergies: Penicillins (Verified Allergy, Unknown, 01/13/23) Exam Vital Signs Vital Signs Date Time Temp Pulse Resp B/P (MAP) Pulse Ox O2 Delivery O2 Flow Rate FiO2 11/06/24 04:00 98.5 74 19 130/62 (84) 94 98.5 11/06/24 02:00 Room Air* 0 21 General Appearance: Alert, Oriented X3, Cooperative, No acute distress HEENT: Atraumatic, PERRLA, EOMI, Mucous membr. moist/pink Respiratory: Normal air movement Cardiovascular: Regular rate, Normal S1, Normal S2, No murmurs Abdominal: Normal bowel sounds, Soft, No tenderness, No hepatospenomegaly, No masses Extremities: No clubbing, No cyanosis, No edema, Normal pulses, No tenderness/swelling, Other (Left AKA) Skin: No rashes, No breakdown, No significant lesion Neuro: Normal speech, Normal tone, Sensation intact, Cranial nerves 3-12 NL, Reflexes 2+, Other (Generalized weakness) Psych/Mental Status: Mental status NL, Mood NL Labs/Xrays Labs Test 11/06/24 03:30 11/06/24 02:45 11/06/24 01:41 11/06/24 01:40 Range/Units Urine Color Light-yellow Yellow Urine Clarity Clear Clear Urine pH 5.0 5.0-9.0 Urine Specific [place] 1.016 1.001-1.035 Urine Protein Negative Negative Urine Ketones 4+ H Negative Urine Blood Negative Negative /uL Urine Nitrite 1+ H Negative Urine Bilirubin Negative Negative Urine Urobilinogen Normal Negative mg/dL Urine Leukocyte Esterase Negative Negative /uL Urine RBC 1 0 - 3 /hpf Urine Microscopic WBC 8 H 0-3 /HPF Urine Squamous Epithelial Cells Few <5 /hpf Urine Bacteria Few H None Seen /hpf Urine Glucose Normal Normal mg/dL Urine Opiates Screen Pos NEGATIVE Urine Fentanyl Screen Neg NEGATIVE Urine Barbiturates Screen Neg NEGATIVE Urine Phencyclidine Screen Neg NEGATIVE Urine Amphetamines Screen Neg NEGATIVE Urine Benzodiazepines Screen Neg NEGATIVE Urine Cocaine Screen Neg NEGATIVE Urine Cannabinoids Screen Neg NEGATIVE Troponin I High Sensitivity 6 </=54 ng/L White Blood Count 7.3 4.4-10.8 10^3/uL Red Blood Count 4.43 L 4.5-5.90 10^6/uL Hemoglobin 14.0 13.5-17.5 g/dL Hematocrit 42.1 41.0-53.0 % Mean Corpuscular Volume 94.9 80.0-100.0 fL Mean Corpuscular Hemoglobin 31.7 28.0-32.0 pg Mean Corpuscular Hemoglobin Concent 33.4 32.0-36.0 g/dL Red Cell Distribution Width 14.9 H 11.8-14.3 % Platelet Count 201 140-450 10^3/uL Mean Platelet Volume 8.4 6.9-10.8 fL Neutrophils (%) (Auto) 67.5 37.0-80.0 % Lymphocytes (%) (Auto) 18.8 10.0-50.0 % Monocytes (%) (Auto) 11.6 0.0-12.0 % Eosinophils (%) (Auto) 1.8 0.0-7.0 % Basophils (%) (Auto) 0.3 0.0-2.0 % Neutrophils # (Auto) 4.9 1.6-8.6 10 ^3/uL Lymphocytes # (Auto) 1.4 0.4-5.4 10 ^3/uL Monocytes # (Auto) 0.8 0-1.3 10 ^3/uL Eosinophils # (Auto) 0.1 0-0.8 10 ^3/uL Basophils # (Auto) 0 0-0.2 10 ^3/uL Nucleated Red Blood Cells 0.1 % Prothrombin Time 16.5 H 9.3-11.8 sec Prothrombin Time INR 1.63 H 0.9-1.15 Activated Partial Thromboplast Time 34.2 24.5-34.5 SEC Sodium Level 139 136-145 mmol/L Potassium Level 4.2 3.5-5.1 mmol/L Chloride Level 107 98-107 mmol/L Carbon Dioxide Level 19 L 20-31 mmol/L Anion Gap 13 5-15 Blood Urea Nitrogen 15 9-23 mg/dL Creatinine 0.70 0.700-1.30 mg/dL Glomerular Filtration Rate Calc 102 >90 mL/min BUN/Creatinine Ratio 21.4 H 10.0-20.0 Serum Glucose 90 74-106 mg/dL Calcium Level 9.2 8.7-10.4 mg/dL Magnesium Level 2.2 1.6-2.6 mg/dL Total Bilirubin 0.5 0.2-1.0 mg/dL Aspartate Amino Transferase (AST) 36 13-40 U/L Alanine Aminotransferase (ALT) 18 7-40 U/L Alkaline Phosphatase 110 46-116 U/L Ammonia < 10 L 11-32 umol/L B-Type Natriuretic Peptide 26.52 0-100 pg/mL Total Protein 7.1 5.7-8.2 g/dL Albumin 4.4 3.2-4.8 g/dL Plasma/Serum Blood Alcohol < 3.0 <10 mg/dL Blood Gas Specimen Type Venous Blood Gas Sample Site Vbg - n/a Blood Gas Patient Temperature 37.0 Arterial Blood Date Drawn [id number] Josh Test N/a Venous Blood pH 7.382 7.320-7.430 Venous Blood pCO2 at Patient Temp 30.1 L 38.0-54.0 mmHg Venous Blood pO2 at Patient Temp 48.8 H 23.0-48.0 mmHg Venous Blood HCO3 17.5 L 22.0-29.0 mmol/L Venous Blood Base Excess -6.2 L -2.0-3.0 mmol/L Blood Gas Modality Nasal cannula FiO2 % 28.0 Blood Gas Critical Value Read Back yes Blood Gas Notified Whom Brandee keating md Blood Gas Notified Time [id number] Blood Gas Notified By [employer] Process Operator lorna rubalcava PATIENT: JOSH ARANDA ACCT: [id number] UNIT: [id number] : 1960 LOC: ER ROOM / BED: / AGE / SEX: 64 / M ADM STATUS: REG ER SERVICE 0117 ORDERING PHYSICIAN: JANNIE SNOW MD PROCEDURE(s): HWOCT - HEAD WITHOUT CONTRAST REASON: ALOC ORDER NUMBER(s): [id number], ACCESSION NUMBER(s): [id number] EXAM: CT HEAD WITHOUT CONTRAST INDICATION: ALOC TECHNIQUE: CT of the head without intravenous contrast. Radiation Dose: 1. Head: CT Dose: CTDI volume is 53.9 mGy. Dose-length product is 1062.36 mGy*cm The dose indicators for CT are the volume Computed Tomography (CT) Dose Index (CTDIvol) and the Dose Length Product (DLP), and are measured in units of mGy and mGy-cm, respectively. These indicators are not patient dose, but values generated from the CT scanner acquisition factors. The report includes radiation exposure data for exposures received during this examination. COMPARISON: None FINDINGS: Postsurgical changes consistent with prior left frontotemporal craniotomy. Focally diminished attenuation within the left external capsule consistent with sequelae of remote insult. There is no evidence of acute intracranial hemorrhage, extra-axial collection, mass effect, midline shift, herniation or hydrocephalus. The ventricles, sulci and cisterns are age appropriate. The san-white differentiation is intact. Patchy periventricular and subcortical white matter hypoattenuation is nonspecific but may be related to small vessel ischemic disease. The visualized paranasal sinuses and mastoid air cells are clear. The surrounding soft tissues and osseous structures are unremarkable. IMPRESSION: 1. No acute intracranial abnormality. 2. Sequelae of remote insult within the left external capsule. 3. Postsurgical change status post left frontotemporal craniotomy. ORDERING PHYSICIAN: JANNIE SNOW MD PROCEDURE(s): CXRP - CHEST PORTABLE REASON: SOB ORDER NUMBER(s): [id number], ACCESSION NUMBER(s): [id number] CHEST RADIOGRAPH Indication: SOB Technique: Single frontal view of the chest was obtained COMPARISON: XY CHEST PORTABLE on DOS: 01/13/23 FINDINGS: Lines and Tubes: None Lungs: Chronic appearing bilateral interstitial pulmonary markings without evidence of focal consolidation. Pleura: No effusion. No pneumothorax. Cardiomediastinal contours: Unremarkable status post median sternotomy. Bones: Unremarkable IMPRESSION: 1. No acute disease. Chronic appearing bilateral interstitial pulmonary markings. SEPSIS Sepsis Screen Date sepsis recognized/suspect: Nov 06, 2024 Time Sepsis recognized/suspect: 422 Recent Procedure: No On Antibiotic Therapy: No Respiratory Rate >20: No Heart Rate >90: No Temp<36 C (96.8 F) or >38.3 C: No SBP <90 or MAP <65 mmHG: No New Acute Mental Status Change: No Is the patient on CPAP, BIPAP,: No Physician Orders Electrocardigram (11/06/24 01:06) Chest Portable (11/06/24 01:17) Head Without Contrast (11/06/24 01:17) Egg Producer (11/06/24 01:17) Troponin-I Hs (11/06/24 04:17) Venous Blood Gas (11/06/24 01:17) Insert/Manage Urinary Catheter QSHIFT (11/06/24 03:08) Complete Blood Count (11/06/24 04:40) Comprehensive Metabolic Panel (11/06/24 04:40) Albuterol Medneb (Ventolin Medneb) (11/06/24 04:45) Ipratropium Medneb (Atrovent Medneb) (11/06/24 04:45) Lisinopril Tablet (Zestril Tablet) (11/06/24 10:00) Urine Bacterial Culture (11/06/24 04:40) Levofloxacin Levaquin (11/07/24 10:00) Levofloxacin Levaquin (11/06/24 04:45) Methylprednisolone Sod Succ (Solu Medrol (11/06/24 10:00) Famotidine Injection (Pepcid Injection) (11/06/24 10:00) Atorvastatin (Lipitor) (11/06/24 22:00) Clonidine Hcl Tablet (Catapres Tablet) (11/06/24 04:45) Apixaban (Eliquis) (11/06/24 10:00) Admit (11/06/24 04:40) Allergies (11/06/24 04:40) Code Status (11/06/24 04:40) 0.9% Ns 1000 Ml (11/06/24 04:45) Oxygen Per Hour (11/06/24 04:40) Hydrocodone-Acet 5/325mg Tab ([place] 5/32 (11/06/24 04:45) Ondansetron Hcl (Zofran) (11/06/24 04:45) Docusate Sodium Capsule (Colace Capsule) (11/06/24 04:45) Fall Risk Precautions In Place QSHIFT (11/06/24 04:40) Complete Blood Count (11/07/24 04:00) Comprehensive Metabolic Panel (11/07/24 04:00) Cardiac Diet-2gna,Lofat,Lochol (11/06/24 Breakfast) Condition: Serious (11/06/24 04:40) Acetaminophen Tablet (Tylenol Tablet) (11/06/24 04:45) Maintain Bed Rest (11/06/24 04:40) Sequential Compression Device (11/06/24 ) Nitroglycerin Sublingual (Ntrostat Subli (11/06/24 04:45) Morphine Sulfate Injection (11/06/24 04:45) Stat Ekg For Chest Pain (11/06/24 04:40) Notify Of Changes From Base (11/06/24 04:40) Healthcare Administration Intern For 24 Hours (11/06/24 04:40) Emergency Dysrhythmia Protocol (11/06/24 04:40) Rhythm Strips Once Every Shift (11/06/24 04:40) Oxygen By Nasal Cannula (11/06/24 04:40) Vital Signs Date Time Temp Pulse Resp B/P (MAP) Pulse Ox O2 Delivery O2 Flow Rate FiO2 11/06/24 04:00 98.5 74 19 130/62 (84) 94 98.5 11/06/24 02:12 93 26 146/69 (94) 95 11/06/24 02:00 Room Air* 0 21 11/06/24 01:48 Nasal Cannula* 2 28 11/06/24 01:10 97.7 85 24 140/89 (106) 98 97.7 11/06/24 01:06 95 Laboratory Tests Test 11/06/24 01:41 White Blood Count 7.3 10^3/uL (4.4-10.8) Medications Medications Dose Ordered Sig/Joe Route Start Time Stop Time Status Last Admin Dose Admin Albuterol 5 mg ONCE ONCE NEB 11/06/24 01:30 11/06/24 01:31 DC 11/06/24 01:48 5 MG Ipratropium [place] 0.5 mg ONCE ONCE NEB 11/06/24 01:30 11/06/24 01:31 DC 11/06/24 01:48 0.5 MG Sodium Chloride 1,000 ml @ 1,000 mls/hr Q1H ONCE IVB 11/06/24 01:30 11/06/24 02:29 DC 11/06/24 02:11 1,000 MLS/HR Assessment/Plan Assessment/Plan Acute metabolic encephalopathy Dehydration COPD with acute exacerbation UTI (urinary tract infection) Generalized weakness Plan 1. Admit to telemetry unit 2. Breathing treatment 3. Pain control management 4. IV antibiotic management 5. Management of fluids and electrolytes 6. Consultation for hospitalist 7. Diagnostic test head CT 8. DVT prophylaxis-on Eliquis 9. Repeat labs CBC, CMP in a.m. 10. Home medication reviewed and reconciled 11. Continue with current medical management 12. Treatment plan discussed with patient and RN. Patient verbalized understanding. Plan discussed with: Patient, Other (RN) My Orders Orders - JOSE SKINNER DNP Procedure Category Date Status Time Complete Blood Count LAB 11/06/24 Verified 04:40 Comprehensive LAB 11/06/24 Verified Metabolic Panel 04:40 Albuterol Medneb PHA 11/06/24 Verified (Ventolin Medneb) 04:45 Ipratropium Medneb PHA 11/06/24 Verified (Atrovent Medneb) 04:45 Lisinopril Tablet PHA 11/06/24 Verified (Zestril Tablet) 10:00 Urine Bacterial [place] 11/06/24 Verified Culture 04:40 Levofloxacin Levaquin PHA 11/07/24 Verified 10:00 Levofloxacin Levaquin PHA 11/06/24 Verified 04:45 Methylprednisolone PHA 11/06/24 Verified Sod Succ (Solu Medrol 10:00 Famotidine Injection PHA 11/06/24 Verified (Pepcid Injection) 10:00 Atorvastatin (Lipitor) PHA 11/06/24 Verified 22:00 Clonidine Hcl Tablet PHA 11/06/24 Verified (Catapres Tablet) 04:45 Apixaban (Eliquis) PHA 11/06/24 Verified 10:00 Admit ADMIT 11/06/24 Verified 04:40 Allergies [place] 11/06/24 Verified 04:40 Code Status CODE 11/06/24 Verified 04:40 0.9% Ns 1000 Ml PHA 11/06/24 Verified 04:45 Oxygen Per Hour RT 11/06/24 Verified 04:40 Hydrocodone-Acet PHA 11/06/24 Verified 5/325mg Tab ([place] 04:45 Ondansetron Hcl PHA 11/06/24 Verified (Zofran) 04:45 Docusate Sodium PHA 11/06/24 Verified Capsule (Colace 04:45 Fall Risk Precautions [place] 11/06/[address] 04:40 Complete Blood Count LAB 11/07/24 Verified 04:00 Comprehensive LAB 11/07/24 Verified Metabolic Panel 04:00 Cardiac DIET 11/06/24 Verified Diet-2gna,Lofat,Lochol Breakfast Condition: Serious [facility] 11/06/24 Verified 04:[address] [facility] 11/06/24 Verified (Tylenol Tablet) 04:45 Maintain Bed Rest [facility] 11/06/24 Verified 04:40 Sequential [facility] 11/06/24 Verified Compression Device Nitroglycerin [facility] 11/06/24 Verified Sublingual (Ntrostat 04:[address] [facility] 11/06/24 Verified Injection 04:45 Stat Ekg For Chest [facility] 11/06/24 Verified Pain 04:40 Notify Md Of Changes [facility] 11/06/24 Verified From Base 04:40 Healthcare Administration Intern For [facility] 11/06/24 Verified 24 Hours 04:40 Emergency Dysrhythmia [facility] 11/06/24 Verified Protocol 04:40 Rhythm Strips Once [facility] 11/06/24 Verified Every Shift 04:40 Oxygen By Nasal RT 11/06/24 Verified Cannula 04:40 Problem List: (1) Acute metabolic encephalopathy (2) Dehydration (3) COPD with acute exacerbation (4) UTI (urinary tract infection) (5) Generalized weakness Date of Service: Nov 06, 2024 Billing Provider: JOSE SKINNER DNP Common Visit Codes: [id number] INP/OBS CARE (HIGH) JOSE SKINNER DNP Nov 06, 2024 05:07
[2024-11-06] MEDS: SODIUM CHLORIDE 0.9% 1,000 ML IV SCH (05:20)
[2024-11-06] MEDS: FAMOTIDINE (10MG/ML) 2ML VL IV SCH (08:33)
[2024-11-06] MEDS: methylPREDNISolone SOD SUCC 40 MG/ML VL IV SCH (08:34)
[2024-11-06] MEDS: LISINOPRIL 5 MG TAB PO SCH (10:00)
[2024-11-06] MEDS: APIXABAN 5 MG TAB PO SCH (10:00)
[2024-11-06] MEDS ORDERED: GABA-1250 PO ×2 (10:22→15:19)
[2024-11-06] MEDS: HYDROcodone-ACET 5/325MG TAB PO PRN (10:35)
--- NOTE | 2024-11-06 13:46 | DVHPN2 ---
Subjective BETTER Reviewed: Care Plan, H&P, Labs, Medications, Previous Orders, Radiology Changes from previous H/P or p: No Changes Objective Vitals Vital Signs Date Time Temp Pulse Resp B/P (MAP) Pulse Ox O2 Delivery O2 Flow Rate FiO2 11/06/24 10:30 164/79 11/06/24 10:00 96 Room Air* 0 21 11/06/24 08:00 24 11/06/24 06:00 84 11/06/24 04:59 97.7 97.7 General Appearance: Alert, Oriented X3, Cooperative, mild distress HEENT: Atraumatic Lungs: Other (Crackles and wheezes bilateral lungs with decreased air entry) Cardiovascular: Regular rate Abdomen: Normal bowel sounds, Soft Extremities: Other (Left AKA) Neuro: Other (Decreased motor activities the right upper and right lower extremity. Some slurred speech) Medications Current Medications Medications Dose Ordered Sig/Joe Route Start Time Stop Time Status Last Admin Dose Admin Albuterol 2.5 mg Q4HPRN PRN NEB 11/06/24 04:45 Ipratropium [place] 0.5 mg Q4HPRN PRN NEB 11/06/24 04:45 Lisinopril 10 mg DAILY PO 11/06/24 10:00 Levofloxacin/ Dextrose 100 ml @ 100 mls/hr DAILY IV 11/07/24 10:00 Methylprednisolone Sodium Succinate 40 mg BID IV 11/06/24 10:00 11/06/24 08:34 40 MG Famotidine 20 mg Q12HR IV 11/06/24 10:00 11/06/24 08:33 20 MG Atorvastatin Calcium 10 mg HS PO 11/06/24 22:00 Clonidine HCl 0.1 mg Q4HP PRN PO 11/06/24 04:45 11/06/24 10:30 0.1 MG Apixaban 5 mg BID PO 11/06/24 10:00 Sodium Chloride 1,000 ml @ 60 mls/hr [id number] IV 11/06/24 04:45 11/06/24 05:20 60 MLS/HR Acetaminophen/ Hydrocodone Bitart 1 tab Q4HP PRN PO 11/06/24 04:45 11/06/24 10:35 1 TAB Ondansetron HCl 4 mg Q4HP PRN IV 11/06/24 04:45 Docusate Sodium 100 mg BIDPRN PRN PO 11/06/24 04:45 Acetaminophen 650 mg Q6HP PRN PO 11/06/24 04:45 Nitroglycerin 0.4 mg Q5MINP PRN SL 11/06/24 04:45 Morphine Sulfate 2 mg Q30M PRN IV 11/06/24 04:45 Laboratory Results Laboratory Tests 11/06/24 01:41 Chemistry Test 11/06/24 01:41 Albumin 4.4 g/dL (3.2-4.8) Calcium Level 9.2 mg/dL (8.7-10.4) Magnesium Level 2.2 mg/dL (1.6-2.6) Total Protein 7.1 g/dL (5.7-8.2) Coagulation Test 11/06/24 01:41 Prothrombin Time 16.5 sec (9.3-11.8) H Prothrombin Time INR 1.63 (0.9-1.15) H Activated Partial Thromboplast Time 34.2 SEC (24.5-34.5) Cardiac Markers Test 11/06/24 01:41 B-Type Natriuretic Peptide 26.52 pg/mL (0-100) LFT Test 11/06/24 01:41 Alanine Aminotransferase (ALT) 18 U/L (7-40) Alkaline Phosphatase 110 U/L (46-116) Aspartate Amino Transferase (AST) 36 U/L (13-40) Total Bilirubin 0.5 mg/dL (0.2-1.0) Urinalysis Test 11/06/24 03:30 Urine Color Light-yellow (Yellow) Urine Clarity Clear (Clear) Urine pH 5.0 (5.0-9.0) Urine Specific [place] 1.016 (1.001-1.035) Urine Protein Negative (Negative) Urine Ketones 4+ (Negative) H Urine Blood Negative /uL (Negative) Urine Nitrite 1+ (Negative) H Urine Bilirubin Negative (Negative) Urine Urobilinogen Normal mg/dL (Negative) Urine Leukocyte Esterase Negative /uL (Negative) Urine RBC 1 /hpf (0 - 3) Urine Microscopic WBC 8 /HPF (0-3) H Urine Squamous Epithelial Cells Few /hpf (<5) Urine Bacteria Few /hpf (None Seen) H Urine Glucose Normal mg/dL (Normal) Blood Gas Results Test 11/06/24 01:40 FiO2 % 28.0 Assessment/Plan Assessment/Plan COPD exacerbation History of CVA Hypertension Dyslipidemia Plan: Continue current plan of care Plan discussed with: Patient Date of Service: Nov 06, 2024 Billing Provider: RON MULTANI MD Common Visit Codes: [id number] INP/OBS CARE(HIGH) RON MULTANI MD Nov 06, 2024 13:46
[2024-11-06] MEDS ORDERED: WARF4TAB69 PO (14:22)
[2024-11-06] MEDS ORDERED: WARF-112 PO (14:24)
[2024-11-06] MEDS ORDERED: NICO14DI9 TD (15:19)
[2024-11-06] MEDS ORDERED: LIDO2SOL18 MT (15:19)
[2024-11-06] MEDS ORDERED: METH100035 PO (15:19)
[2024-11-06] MEDS ORDERED: AMLO1TAB22 PO (15:21)
[2024-11-06] MEDS ORDERED: DOCU-96 PO (15:21)
[2024-11-06] MEDS ORDERED: SIMV40TA18 PO (15:22)
[2024-11-06] MEDS ORDERED: MONT10TA23 PO (15:22)
[2024-11-06] MEDS ORDERED: MELA3TAB27 PO (15:23)
[2024-11-06] MEDS ORDERED: FLUT1AER3 IN (15:24)
[2024-11-06] MEDS: IPRATROPIUM BROM 0.5 MG/2.5ML INH SOL NEB PRN (15:55)
[2024-11-06] MEDS: ALBUTEROL SULF 2.5 MG/0.5ML(0.5%) NEB SOLN NEB PRN (15:55)
[2024-11-06] MEDS ORDERED: BUDE1AER5 IN (17:48)
[2024-11-06] MEDS: ATORVASTATIN 20 MG TAB PO SCH (21:23)
[2024-11-06] MEDS: ACETAMINOPHEN 325 MG TAB PO PRN (21:38)
[2024-11-06] MEDS: MORPHINE SULFATE INJ 2 MG/ml SYRG IV ONE (22:02)
[2024-11-07] VITALS (14 sets, daily range): BP systolic 111–150; BP diastolic 65–94; PULSE 67–104; RESP 14–20; TEMP 97.4–98.2; O2SAT 92–100
[2024-11-07] MEDS: MELATONIN 5 MG TAB PO ONE (00:25)
[2024-11-07] MEDS ORDERED: METH-1182 PO (03:48)
[2024-11-07] MEDS ORDERED: LISI20TA56 PO (03:48)
[2024-11-07] MEDS ORDERED: BACL20TA PO (03:52)
[2024-11-07] MEDS ORDERED: ATOR40TA52 PO (03:52)
[2024-11-07] MEDS ORDERED: APIX5TAB PO (03:52)
[2024-11-07] MEDS ORDERED: ALB5IS NEB (03:58)
[2024-11-07] MEDS: HYDROcodone-ACET 10/325MG TAB PO ONE (05:14)
[2024-11-07] MEDS ORDERED: AML5T PO (05:18)
[2024-11-07] MEDS ORDERED: NIC21P TOP (05:21)
[2024-11-07] MEDS ORDERED: LIDO5DIS21 TOP (05:21)
[2024-11-07 06:20] LABS: Hematocrit 40.8 % (41.0-53.0); Hemoglobin 14.2 g/dL (13.5-17.5); Mean Corpuscular Hemoglobin 32.2 pg (28.0-32.0); Mean Corpuscular Volume 92.7 fL (80.0-100.0); Nucleated Red Blood Cells % 0.0 %
[2024-11-07 06:40] LABS: Alanine Aminotransferase 15 U/L (7-40); Albumin 4.4 g/dL (3.2-4.8); Alkaline Phosphatase 99 U/L (46-116); Anion Gap 10 (5-15); BUN/Creatinine Ratio 14.9 (10.0-20.0); Bilirubin, Total 0.4 mg/dL (0.2-1.0); Blood Urea Nitrogen 11 mg/dL (9-23); Calcium 10.4 mg/dL (8.7-10.4); Carbon Dioxide 27 mmol/L (20-31); Chloride 104 mmol/L (98-107); Potassium 4.5 mmol/L (3.5-5.1); Sodium 141 mmol/L (136-145); Total Protein 6.9 g/dL (5.7-8.2)
[2024-11-07 06:45] LABS: Glucose 174 mg/dL (74-106)
[2024-11-07] MEDS: DOCUSATE SOD 100 MG CAP PO PRN (08:40)
[2024-11-07] MEDS: ACETAMINOPHEN/CODEINE#3 (300/30mg) TAB PO PRN (16:09)
[2024-11-07] MEDS: NICOTINE 21MG/24 HR TOPICAL PATCH TD SCH (16:09)
--- NOTE | 2024-11-07 17:22 | DVHPN2 ---
Subjective No change today except less distress Reviewed: Care Plan, H&P, Labs, Medications, Previous Orders, Radiology Changes from previous H/P or p: No Changes Objective Vitals Vital Signs Date Time Temp Pulse Resp B/P (MAP) Pulse Ox O2 Delivery O2 Flow Rate FiO2 11/07/24 13:00 98.0 85 19 133/88 (103) 93 98.0 11/07/24 10:00 Room Air* 0 21 Intake/Output Intake and Output 11/07/24 07:00 Intake Total 1620 ml Output Total 1550 ml Balance 70 ml Intake Oral 1080 ml IV Total 240 ml Tube Feeding 300 ml Output Urine Total 1550 ml General Appearance: Alert, Oriented X3, Cooperative HEENT: Atraumatic Lungs: Other (Crackles and wheezes bilateral lungs with decreased air entry) Cardiovascular: Regular rate Abdomen: Normal bowel sounds, Soft Extremities: Other (Left AKA) Neuro: Other (Decreased motor activities the right upper and right lower extremity. Some slurred speech) Medications Current Medications Medications Dose Ordered Sig/Joe Route Start Time Stop Time Status Last Admin Dose Admin Albuterol 2.5 mg Q4HPRN PRN NEB 11/06/24 04:45 11/07/24 00:07 2.5 MG Ipratropium [place] 0.5 mg Q4HPRN PRN NEB 11/06/24 04:45 11/07/24 00:07 0.5 MG Lisinopril 10 mg DAILY PO 11/06/24 10:00 11/07/24 08:40 10 MG Levofloxacin/ Dextrose 100 ml @ 100 mls/hr DAILY IV 11/07/24 10:00 Methylprednisolone Sodium Succinate 40 mg BID IV 11/06/24 10:00 11/06/24 22:42 40 MG Famotidine 20 mg Q12HR IV 11/06/24 10:00 11/06/24 08:33 20 MG Atorvastatin Calcium 10 mg HS PO 11/06/24 22:00 11/06/24 21:23 10 MG Clonidine HCl 0.1 mg Q4HP PRN PO 11/06/24 04:45 11/06/24 10:30 0.1 MG Apixaban 5 mg BID PO 11/06/24 10:00 11/07/24 08:40 5 MG Sodium Chloride 1,000 ml @ 60 mls/hr [id number] IV 11/06/24 04:45 11/06/24 05:20 60 MLS/HR Ondansetron HCl 4 mg Q4HP PRN IV 11/06/24 04:45 Docusate Sodium 100 mg BIDPRN PRN PO 11/06/24 04:45 11/07/24 08:40 100 MG Acetaminophen 650 mg Q6HP PRN PO 11/06/24 04:45 11/06/24 21:38 650 MG Nitroglycerin 0.4 mg Q5MINP PRN SL 11/06/24 04:45 Morphine Sulfate 2 mg Q30M PRN IV 11/06/24 04:45 Morphine Sulfate 15 mg Q8HR PO 11/07/24 22:00 Acetaminophen/ Codeine Phosphate 1 tab Q4HP PRN PO 11/07/24 14:45 11/07/24 16:09 1 TAB Nicotine 1 patch DAILY TD 11/07/24 16:00 11/07/24 16:09 1 PATCH Laboratory Results Laboratory Tests 11/07/24 05:37 Chemistry Test 11/07/24 05:37 Albumin 4.4 g/dL (3.2-4.8) Calcium Level 10.4 mg/dL (8.7-10.4) Total Protein 6.9 g/dL (5.7-8.2) LFT Test 11/07/24 05:37 Alanine Aminotransferase (ALT) 15 U/L (7-40) Alkaline Phosphatase 99 U/L (46-116) Aspartate Amino Transferase (AST) 31 U/L (13-40) Total Bilirubin 0.4 mg/dL (0.2-1.0) Urinalysis Test 11/06/24 03:30 Urine Color Light-yellow (Yellow) Urine Clarity Clear (Clear) Urine pH 5.0 (5.0-9.0) Urine Specific [place] 1.016 (1.001-1.035) Urine Protein Negative (Negative) Urine Ketones 4+ (Negative) H Urine Blood Negative /uL (Negative) Urine Nitrite 1+ (Negative) H Urine Bilirubin Negative (Negative) Urine Urobilinogen Normal mg/dL (Negative) Urine Leukocyte Esterase Negative /uL (Negative) Urine RBC 1 /hpf (0 - 3) Urine Microscopic WBC 8 /HPF (0-3) H Urine Squamous Epithelial Cells Few /hpf (<5) Urine Bacteria Few /hpf (None Seen) H Urine Glucose Normal mg/dL (Normal) Microbiology Microbiology Date/Time Source Procedure Growth Status 11/06/24 03:30 Voided Urine Urine Culture - Preliminary Resulted Assessment/Plan Assessment/Plan COPD exacerbation History of CVA Hypertension Dyslipidemia Plan: Change nebulizer to albuterol and Atrovent q.6 hours and albuterol every 3 hours p.r.n.. Pain medications SR home. Patient takes MS Contin 50 mg every 8 hours and Tylenol with codeine 4. Continue current plan of care with steroids and antibiotics Plan discussed with: Patient, Other (Nursing) My Orders Orders - RON MULTANI MD Procedure Category Date Status Time Morphine Extended PHA 11/07/24 In Process Release Tab (Oramorph 22:00 Acetaminophen/Codeine PHA 11/07/24 In Process Tablet (Tylenol W/ 14:45 Nicotine 21mg/24hr PHA 11/07/24 In Process (Nicoderm 21mg/24hr) 16:00 Albuterol Medneb PHA 11/07/24 Logged (Ventolin Medneb) 18:00 Albuterol Medneb PHA 11/07/24 Logged (Ventolin Medneb) 17:30 Ipratropium Medneb PHA 11/07/24 Logged (Atrovent Medneb) 18:00 Date of Service: Nov 07, 2024 Billing Provider: RON MULTANI MD Common Visit Codes: [id number] INP/OBS CARE(HIGH) RON MULTANI MD Nov 07, 2024 17:22
[2024-11-07] MEDS ORDERED: ALBUTEROL SULF 2.5 MG/0.5ML(0.5%) NEB SOLN NEB PRN (17:30)
[2024-11-07] MEDS: IPRATROPIUM BROM 0.5 MG/2.5ML INH SOL NEB SCH (19:01)
[2024-11-07] MEDS: ALBUTEROL SULF 2.5 MG/0.5ML(0.5%) NEB SOLN NEB SCH (19:01)
[2024-11-07] MEDS: MORPHINE SULF 15mg ER tab PO SCH (21:42)
[2024-11-08] VITALS (17 sets, daily range): BP systolic 108–141; BP diastolic 78–85; PULSE 75–108; RESP 14–20; TEMP 97.4–98.1; O2SAT 93–100
--- NOTE | 2024-11-08 06:07 | ECG ---
[facility] Test Date: 2024-11-06 Test Time: 01:00:27 Pat Name: IVONNE ARANDA Department: ED Room: 0248T B Gender: M Eradicator: sam : 1960 Requested By: EMERGENCY EMERGENCY Order Number: [id number] Reading MD: Johnson Rob Measurements Intervals [place] Rate: 95 P: 77 [place]: 158 QRS: 103 QRSD: 86 T: 75 QT: 363 QTc: 457 Interpretive Statements Sinus rhythm Right axis deviation Consider anterior infarct Minimal ST elevation, inferior leads Electronically Signed On 11-10-2024 17:46:09 PDT by Johnson Rob Please click the below link to view image of tracing.
--- NOTE | 2024-11-08 16:55 | DVHPNRES ---
Progress Note Date Seen: Nov 08, 2024 Resident Creating Document: LIDIA MARTINEZ RESIDENT Medical Necessity Reason Pt with a Central, PICC or Fol: No Subjective Review of Systems A 64-year-old male with past medical history of COPD, CVA, hyperlipidemia, and hypertension who presented to [facility] ED for evaluation of altered level of consciousness and shortness of breaths. As reported by EMS, patient was transferred from [facility] where he was diagnosed with UTI and metabolic encephalopathy. Patient was started on based on levofloxacin for UTI Today patient is alert and oriented x3 but still having episodes of confusion. Patient is a poor historian. Patient mentioned that he was electrocuted and does not want to go home and wants to go to a hotel room. Talked to the over the phone mentioned that patient has been having delusional episodes since last few days. Past medical history COPD, stroke with right-sided deficit, hyperlipidemia, hypertension Past surgical history No recent surgery AKA, CABG, Left frontotemporal craniotomy Reviewed, noncontributory to the management of this case. Past Social History The patient lives at home, smokes cigarettes, denies alcohol or illicit drugs abuse. Objective vital signs Vital Sign Date Time Temp Pulse Resp B/P (MAP) Pulse Ox O2 Delivery O2 Flow Rate FiO2 11/08/24 13:00 98.0 88 18 128/83 (98) 94 98.0 11/08/24 11:30 Room Air 11/08/24 11:30 0 21 Total Intake and Output 11/07/24 11/07/24 11/08/24 15:00 23:00 07:00 Intake Total 600 ml 600 ml Output Total 750 ml 2400 ml Balance -150 ml -1800 ml medications Current Medications Medications Dose Ordered Sig/Joe Route Start Time Stop Time Status Last Admin Dose Admin Lisinopril 10 mg DAILY PO 11/06/24 10:00 11/08/24 09:05 10 MG Levofloxacin/ Dextrose 100 ml @ 100 mls/hr DAILY IV 11/07/24 10:00 11/08/24 09:05 100 MLS/HR Methylprednisolone Sodium Succinate 40 mg BID IV 11/06/24 10:00 11/08/24 09:04 40 MG Famotidine 20 mg Q12HR IV 11/06/24 10:00 11/08/24 09:04 20 MG Atorvastatin Calcium 10 mg HS PO 11/06/24 22:00 11/06/24 21:23 10 MG Clonidine HCl 0.1 mg Q4HP PRN PO 11/06/24 04:45 11/06/24 10:30 0.1 MG Apixaban 5 mg BID PO 11/06/24 10:00 11/08/24 09:04 5 MG Sodium Chloride 1,000 ml @ 60 mls/hr [id number] IV 11/06/24 04:45 11/06/24 05:20 60 MLS/HR Ondansetron HCl 4 mg Q4HP PRN IV 11/06/24 04:45 Docusate Sodium 100 mg BIDPRN PRN PO 11/06/24 04:45 11/08/24 09:04 100 MG Acetaminophen 650 mg Q6HP PRN PO 11/06/24 04:45 11/06/24 21:38 650 MG Nitroglycerin 0.4 mg Q5MINP PRN SL 11/06/24 04:45 Morphine Sulfate 2 mg Q30M PRN IV 11/06/24 04:45 Morphine Sulfate 15 mg Q8HR PO 11/07/24 22:00 11/08/24 13:56 15 MG Acetaminophen/ Codeine Phosphate 1 tab Q4HP PRN PO 11/07/24 14:45 11/08/24 12:37 1 TAB Nicotine 1 patch DAILY TD 11/07/24 16:00 11/08/24 09:05 1 PATCH Albuterol 2.5 mg Q6HR NEB 11/07/24 18:00 11/08/24 11:30 2.5 MG Albuterol 2.5 mg Q3HPRN PRN NEB 11/07/24 17:30 Ipratropium [place] 0.5 mg Q6HR NEB 11/07/24 18:00 11/08/24 11:30 0.5 MG Examination Examination General Appearance: Alert, Oriented X3, Cooperative, No acute distress; delusional HEENT: EOMI Respiratory: Clear to auscultation, Normal air movement Cardiovascular: Regular rate, Normal S1, Normal S2 Abdominal: Normal bowel sounds Extremities: Left-sided above-knee amputation Skin: No rashes, No breakdown Neuro: Confused, delusional, dysarthria, right-sided deficit laboratory and microbiology Laboratory Tests 11/07/24 05:37 Test 11/07/24 05:37 Range/Units Serum Glucose 174 H 74-106 mg/dL Microbiology Date/Time Source Procedure Growth Status 11/06/24 03:30 Voided Urine Urine Culture - Final Escherichia coli Complete Labs and/or images reviewed: Labs reviewed by me, Image(s) reviewed by me Problem List/Assessment/Plan Problem List/Assessment/Plan Assessment/plan # Acute metabolic encephalopathy due to E coli UTI; with delusions IV antibiotics with levofloxacin due to penicillin allergy Reviewed urine culture Head CT : 1. No acute intracranial abnormality. 2. Sequelae of remote insult within the left external capsule. 3. Postsurgical change status post left frontotemporal craniotomy # History of traumatic brain injury and stroke status post craniotomy; with dysarthria # COPD exacerbation Albuterol, ipratropium Steroids # Hypertension Resume home medication # Hyperlipidemia Resume home medication # Paroxysmal A Fib with secondary hypercoagulable status Continue apixaban # Malnutrition Enamel Shader is following Goals of care discussed with the patient's for 20 minutes; Full code updated over the phone about the patient's condition Case discussion with Dr. Klein Plan discussed with: Spouse, Other (Nurse) My Orders My Orders Orders - LIDIA MARTINEZ RESIDENT Procedure Category Date Status Time * Flat Examiner CONS 11/08/24 Transmitted Consult Addendum Addendum Addendum I was physically present for the zelaya portions of the service provided to patient by THE RESIDENT. I have reviewed the documentation, discussed the case with resident and agree with the resident's documentation except as noted. Also the patient's clinical case was discussed with the patient's nurse. This medical document was created using an electronic medical record system with computerized dictation system. Although this document has been carefully reviewed, there might still be some phonetic and typographical errors. These areas are purely typographical due to imperfections of the software programs, and do not reflect any compromise in the patient's medical care. Late signature. Date of Service: Nov 08, 2024 Billing Provider: OWEN KLEIN MD Common Visit Codes: [id number] INP/OBS CARE(HIGH) Secondary Visit Codes: [id number] CARE PLAN 30 MINUTES (20 minutes) LIDIA MARTINEZ RESIDENT Nov 08, 2024 16:55 OWEN KLEIN MD Nov 09, 2024 09:27
[2024-11-09] VITALS (12 sets, daily range): BP systolic 98–119; BP diastolic 63–79; PULSE 85–102; RESP 14–22; TEMP 97.4–98.3; O2SAT 93–100
[2024-11-09 06:53] LABS: Anion Gap 7 (5-15); Chloride 102 mmol/L (98-107); Potassium 4.6 mmol/L (3.5-5.1); Sodium 141 mmol/L (136-145)
[2024-11-09 06:55] LABS: Calcium 10.3 mg/dL (8.7-10.4)
[2024-11-09 06:59] LABS: BUN/Creatinine Ratio 15.3 (10.0-20.0); Blood Urea Nitrogen 13 mg/dL (9-23); Glucose 105 mg/dL (74-106)
[2024-11-09 07:00] LABS: Magnesium 2.3 mg/dL (1.6-2.6)
[2024-11-09 07:01] LABS: Carbon Dioxide 32 mmol/L (20-31); Hematocrit 42.6 % (41.0-53.0); Hemoglobin 14.6 g/dL (13.5-17.5); Mean Corpuscular Hemoglobin 32.1 pg (28.0-32.0); Mean Corpuscular Volume 93.8 fL (80.0-100.0); Nucleated Red Blood Cells % 0.0 %
[2024-11-09] MEDS: levoFLOXacin 500 MG TAB PO SCH (09:16)
[2024-11-09] MEDS: predniSONE 20 MG TAB PO SCH (09:17)
[2024-11-09] MEDS ORDERED: PRED20TA2 PO (11:32)
[2024-11-09] MEDS ORDERED: LEVO500T91 PO (11:32)
--- NOTE | 2024-11-09 18:53 | DVHDSRES ---
Discharge Summary Date of Admission Resident Creating Document: LIDIA MARTINEZ RESIDENT Nov 06, 2024 at 04:40 Date of Discharge: Nov 09, 2024 Admitting Diagnosis Altered level of consciousness and shortness of breath Labs/Diagnostic Data: Laboratory Results Test 11/09/24 06:16 11/07/24 05:37 11/06/24 03:30 11/06/24 02:45 White Blood Count 8.0 10^3/uL (4.4-10.8) Red Blood Count 4.54 10^6/uL (4.5-5.90) Hemoglobin 14.6 g/dL (13.5-17.5) Hematocrit 42.6 % (41.0-53.0) Mean Corpuscular Volume 93.8 fL (80.0-100.0) Mean Corpuscular Hemoglobin 32.1 pg (28.0-32.0) Mean Corpuscular Hemoglobin Concent 34.2 g/dL (32.0-36.0) Red Cell Distribution Width 15.1 % (11.8-14.3) Platelet Count 218 10^3/uL (140-450) Mean Platelet Volume 8.4 fL (6.9-10.8) Neutrophils (%) (Auto) 57.0 % (37.0-80.0) Lymphocytes (%) (Auto) 28.0 % (10.0-50.0) Monocytes (%) (Auto) 10.8 % (0.0-12.0) Eosinophils (%) (Auto) 3.6 % (0.0-7.0) Basophils (%) (Auto) 0.6 % (0.0-2.0) Neutrophils # (Auto) 4.6 10 ^3/uL (1.6-8.6) Lymphocytes # (Auto) 2.2 10 ^3/uL (0.4-5.4) Monocytes # (Auto) 0.9 10 ^3/uL (0-1.3) Eosinophils # (Auto) 0.3 10 ^3/uL (0-0.8) Basophils # (Auto) 0 10 ^3/uL (0-0.2) Nucleated Red Blood Cells 0.0 % Sodium Level 141 mmol/L (136-145) Potassium Level 4.6 mmol/L (3.5-5.1) Chloride Level 102 mmol/L (98-107) Carbon Dioxide Level 32 mmol/L (20-31) Anion Gap 7 (5-15) Blood Urea Nitrogen 13 mg/dL (9-23) Creatinine 0.85 mg/dL (0.700-1.30) Glomerular Filtration Rate Calc 96 mL/min (>90) BUN/Creatinine Ratio 15.3 (10.0-20.0) Serum Glucose 105 mg/dL (74-106) Calcium Level 10.3 mg/dL (8.7-10.4) Magnesium Level 2.3 mg/dL (1.6-2.6) Total Bilirubin 0.4 mg/dL (0.2-1.0) Aspartate Amino Transferase (AST) 31 U/L (13-40) Alanine Aminotransferase (ALT) 15 U/L (7-40) Alkaline Phosphatase 99 U/L (46-116) Total Protein 6.9 g/dL (5.7-8.2) Albumin 4.4 g/dL (3.2-4.8) Urine Color Light-yellow (Yellow) Urine Clarity Clear (Clear) Urine pH 5.0 (5.0-9.0) Urine Specific [place] 1.016 (1.001-1.035) Urine Protein Negative (Negative) Urine Ketones 4+ (Negative) Urine Blood Negative /uL (Negative) Urine Nitrite 1+ (Negative) Urine Bilirubin Negative (Negative) Urine Urobilinogen Normal mg/dL (Negative) Urine Leukocyte Esterase Negative /uL (Negative) Urine RBC 1 /hpf (0 - 3) Urine Microscopic WBC 8 /HPF (0-3) Urine Squamous Epithelial Cells Few /hpf (<5) Urine Bacteria Few /hpf (None Seen) Urine Glucose Normal mg/dL (Normal) Urine Opiates Screen Pos (NEGATIVE) Urine Fentanyl Screen Neg (NEGATIVE) Urine Barbiturates Screen Neg (NEGATIVE) Urine Phencyclidine Screen Neg (NEGATIVE) Urine Amphetamines Screen Neg (NEGATIVE) Urine Benzodiazepines Screen Neg (NEGATIVE) Urine Cocaine Screen Neg (NEGATIVE) Urine Cannabinoids Screen Neg (NEGATIVE) Troponin I High Sensitivity 6 ng/L (</=54) Test 11/06/24 01:41 11/06/24 01:40 Prothrombin Time 16.5 sec (9.3-11.8) Prothrombin Time INR 1.63 (0.9-1.15) Activated Partial Thromboplast Time 34.2 SEC (24.5-34.5) Ammonia < 10 umol/L (11-32) B-Type Natriuretic Peptide 26.52 pg/mL (0-100) Plasma/Serum Blood Alcohol < 3.0 mg/dL (<10) Blood Gas Specimen Type Venous Blood Gas Sample Site Vbg - n/a Blood Gas Patient Temperature 37.0 Arterial Blood Date Drawn [id number] Josh Test N/a Venous Blood pH 7.382 (7.320-7.430) Venous Blood pCO2 at Patient Temp 30.1 mmHg (38.0-54.0) Venous Blood pO2 at Patient Temp 48.8 mmHg (23.0-48.0) Venous Blood HCO3 17.5 mmol/L (22.0-29.0) Venous Blood Base Excess -6.2 mmol/L (-2.0-3.0) Blood Gas Modality Nasal cannula FiO2 % 28.0 Blood Gas Critical Value Read Back yes Blood Gas Notified Whom Brandee keating md Blood Gas Notified Time [id number] Blood Gas Notified By Ramo rubalcava Other Laboratory Tests 11/09/24 06:16 Brief Hx & Hospital Course: A 64-year-old male patient with past medical history of COPD, stroke, hyperlipidemia and hypertension presented to [facility] for altered level of consciousness and shortness of breath. Patient was transferred from [facility] where he was diagnosed with UTI and metabolic encephalopathy. Patient was started on levofloxacin for UT and steroids for COPD exacerbation. Patient got more alert during the hospital stay. Patient was on room air later and improvement in his shortness of breath. Head CT was showing no acute intracranial abnormality. Was resumed on home medication for hypertension, hyperlipidemia and AFib. At the time of discharge, patient had stable vitals, no new complaints. Patient became more alert during the hospital stay. Discharge plan was discussed with the patient and the over the phone and patient was discharged with levofloxacin and prednisone. Patient examined at the day of discharge General Appearance: Alert, Oriented X3 HEENT: EOMI Respiratory: Clear to auscultation, Normal air movement Cardiovascular: Regular rate, Normal S1, Normal S2 Abdominal: Normal bowel sounds Extremities: Left-sided above-knee amputation Skin: No rashes, No breakdown Neuro: dysarthria, right-sided deficit Discussed with Dr. Klein Operations or Procedures PATIENT: JOSH ARANDA ACCT: [id number] UNIT: [id number] : 1960 LOC: ER ROOM / BED: / AGE / SEX: 64 / M ADM STATUS: REG ER SERVICE 6 ORDERING PHYSICIAN: JANNIE SNOW MD PROCEDURE(s): HWOCT - HEAD WITHOUT CONTRAST REASON: ALOC ORDER NUMBER(s): [id number], ACCESSION NUMBER(s): [id number] EXAM: CT HEAD WITHOUT CONTRAST INDICATION: ALOC TECHNIQUE: CT of the head without intravenous contrast. Radiation Dose : 1. Head: CT Dose: CTDI volume is 53.9 mGy. Dose-length product is 1062.36 mGy*cm The dose indicators for CT are the volume Computed Tomography (CT) Dose Index (CTDIvol) and the Dose Length Product (DLP), and are measured in units of mGy and mGy-cm, respectively. These indicators are not patient dose, but values generated from the CT scanner acquisition factors. The report includes radiation exposure data for exposures received during this examination. COMPARISON: None FINDINGS: Postsurgical changes consistent with prior left frontotemporal craniotomy. Focally diminished attenuation within the left external capsule consistent with sequelae of remote insult. There is no evidence of acute intracranial hemorrhage, extra-axial collection, mass effect, midline shift, herniation or hydrocephalus. The ventricles, sulci and cisterns are age appropriate. The san-white differentiation is intact. Patchy periventricular and subcortical white matter hypoattenuation is nonspecific but may be related to small vessel ischemic disease. The visualized paranasal sinuses and mastoid air cells are clear. The surrounding soft tissues and osseous structures are unremarkable. IMPRESSION: 1. No acute intracranial abnormality. 2. Sequelae of remote insult within the left external capsule. 3. Postsurgical change status post left frontotemporal craniotomy. Radiation optimization: All CT scans at this facility use at least one of these dose optimization techniques: automated exposure control mA and/or kV adjustment per patient size (includes targeted exams where dose is matched to clinical indication) or iterative reconstruction. ATED BY: KAMERON CACERES MD DICTATED DATE/TIME: 11/06/24227 SIGNED BY: KAMERON CACERES MD SIGNED DATE/TIME: 11/06/24227 CC: Condition at Discharge: Stable Final Diagnosis/Problems List # Acute metabolic encephalopathy due to E coli UTI; with delusions # History of traumatic brain injury and stroke status post craniotomy; with dysarthria # COPD exacerbation # Hypertension # Hyperlipidemia # Paroxysmal A Fib with secondary hypercoagulable status # Malnutrition Discharge Disposition: Home Discharge Instruct/Medications Diet: Cardiac 2g Na,low cholest Activity: No Restrictions, As Tolerated Follow Up/Referral: f/u with PCP within 1 week Medications: script sent to pharmacy Scheduled Acetaminophen W/ Codeine (Acetaminophen/Codeine), 1 TAB PO Q6HR, (Reported) Albuterol Sulfate (Ventolin), 1 VIAL NEB Q4HP, (Reported) Amlodipine Besylate (Amlodipine Besylate), 5 MG PO DAILY, (Reported) Amlodipine Besylate (Norvasc Tablet), 1 TAB PO DAILY, (Reported) Atorvastatin Calcium (Atorvastatin Calcium), 1 TAB PO DAILY, (Reported) Budesonide-Formoterol Fumarate (Budesonide/Formoterol Fum 80-4.5 Mcg/Act), 1 AER IN DAILY, (Reported) Bijngbraoac-Ftzgiulvqqnr-Whjpg (Trelegy Ellipta 100-62.5-25 Mcg/INH), 1 AER IN DAILY, (Reported) Etjbmxprhhe-Tqywmulsgvjs-Ljnyh (Trelegy Ellipta 100-62.5-25 Mcg/INH), 1 AER IN DAILY, (Reported) Gabapentin (Gabapentin), 300 MG PO TID, (Reported) Levofloxacin Hemihydrate (Levaquin 500 Mg), 500 MG PO DAILY Lidocaine (Lidoderm 5% Topical Patch), 1 PATCH TOP DAILY, (Reported) Lisinopril (Lisinopril), 1 TAB PO DAILY, (Reported) Methocarbamol (Methocarbamol), 750 MG PO TID, (Reported) Nicotine (Nicoderm 21MG/24HR), 1 PATCH TOP DAILY, (Reported) Prednisone (Prednisone), 40 MG PO DAILY Warfarin Sodium (Warfarin Sodium), 2 MG PO QPM, (Reported) Warfarin Sodium (Warfarin Sodium), 4 MG PO QWEEKLY, (Reported) Miscellaneous Medications Albuterol Sulfate (Albuterol Sulfate), NEB, (Reported) Discontinued Medications Apixaban Base (Eliquis Starter Pack), 5 MG PO DAILY, (Reported) Baclofen (Baclofen), 10 MG PO Q8HR, (Reported) Diazepam (Diazepam), 5 MG PO TID, (Reported) Lisinopril (Lisinopril), 10 MG PO DAILY, (Reported) Discharge Statement: "Patient was advised to return to the ER or call 911 if any headaches, dizziness, shortness of breath, chest pain, abdominal pain, bleeding, fevers, or worsening of medical condition. Patient was counseled about treatment plan, medications, possible side effects, patientverbalized understanding. All questions were answered to the best of my ability. This discharge took greater then 30 minutes in planning, reviewing documentation, counseling the patient, and discussing with other team members." ASSESSMENT ASSESSMENT Assessment Metabolic encephalopathy UTI History of stroke Addendum Addendum Addendum I was physically present for the zelaya portions of the service provided to patient by THE RESIDENT. I have reviewed the documentation, discussed the case with resident and agree with the resident's documentation except as noted. Also the patient's clinical case was discussed with the patient's nurse. This medical document was created using an electronic medical record system with computerized dictation system. Although this document has been carefully reviewed, there might still be some phonetic and typographical errors. These areas are purely typographical due to imperfections of the software programs, and do not reflect any compromise in the patient's medical care. Late signature. Date of Service: Nov 09, 2024 Billing Provider: OWEN KLEIN MD Common Visit Codes: 37211-PPZ/OBS DISCH DAY >30min LIDIA MARTINEZ RESIDENT Nov 09, 2024 18:53 OWEN KLEIN MD Nov 10, 2024 21:42
== END 2024-11-09 17:24 | disposition short-term general hospital (02) | DRG 689 ==
LOC: ER 01:06 → EDBD 01:06 → OVERFLOW 04:40 → TELE-EAST 18:25
PROVIDERS: ADMIT Internal Medicine; ATTEND Internal Medicine
DX: N39.0 Urinary tract infection, site not specified (principal); G93.41 Metabolic encephalopathy; J44.1 Chronic obstructive pulmonary disease with (acute) exacerbation; D68.69 Other thrombophilia; E46 Unspecified protein-calorie malnutrition; E86.0 Dehydration; F17.210 Nicotine dependence, cigarettes, uncomplicated; I10 Essential (primary) hypertension; E78.5 Hyperlipidemia, unspecified; I48.0 Paroxysmal atrial fibrillation; B96.20 Unspecified Escherichia coli [E. coli] as the cause of diseases classified elsewhere; Z86.73 Personal history of transient ischemic attack (TIA), and cerebral infarction without residual deficits; Z88.0 Allergy status to penicillin; Z79.01 Long term (current) use of anticoagulants; Z79.899 Other long term (current) drug therapy; Z95.1 Presence of aortocoronary bypass graft; Z68.20 Body mass index [BMI] 20.0-20.9, adult
CPT/HCPCS: 36415; 36600; 70450; 71045; 80048; 80053; 80307; 80320; 81001; 82140; 82805; 83735; 83880; 84484; 85025; 85610; 85730; 87086; 87088; 87186; 93005; 94640; 99291; G0378; J1956; J3490